=== PATIENT | male | born 1930 | race Caucasian/White ===

== ENCOUNTER 2016-09-04 15:22 | Inpatient (IN) | payer OTHER, BC ==
--- NOTE | 2016-09-04 16:49 | PDOC ---
History of Present Illness <Cammie Robertson - Last Filed: 09/04/16 18:56> <Jacqueline Avila - Last Filed: 09/04/16 20:25> - General History Source: Patient Exam Limitations: No Limitations - History of Present Illness Initial Comments: 09/04/16 19:53 The patient is an 86 year old male with a significant past medical history of a- fib, hypothyroidism, HTN, HLD, pressure ulcer, and osteoarthritis who is arrived to the Emergency Department via EMS with complaints of fever and worsening left pleural effusion. As per notes, pt was told in July that the fluid was getting worse. Pt was recently diagnosed with pneumonia and he is on abx. Pt states that he has not walked for the past months. Pt denies chills, sweats, abdominal pain, nausea, vomiting, diarrhea, urinary problems, chest pain , SOB. PCP: Dr. Lawrence <Benito Navarrete - Last Filed: 09/07/16 11:08> - General Chief Complaint: Revisit,Radiology Variance Stated Complaint: FEVER Time Seen by Provider: 09/04/16 15:37 Past History <Cammie Robertson - Last Filed: 09/04/16 18:56> <Jacqueline Avila - Last Filed: 09/04/16 20:25> - Past Medical History Anemia: Yes COPD: Yes GI Disorders: Yes (peptic ulcer, diverticulosis) HTN: Yes Hypercholesterolemia: Yes - Psycho/Social/Smoking Cessation Hx Anxiety: No Suicidal Ideation: No Smoking History: Never smoked Have you smoked in the past 12 months: No Number of Cigarettes Smoked Daily: 10 If you are a former smoker, when did you quit?: 1970 Information on smoking cessation initiated: No Hx Alcohol Use: No Drug/Substance Use Hx: No Substance Use Type: None <Benito Navarrete - Last Filed: 09/07/16 11:08> - Past Medical History Allergies/Adverse Reactions: Allergies Allergy/AdvReac Type Severity Reaction Status Date / Time No Known Allergies Allergy Verified 06/24/16 09:21 Home Medications: Ambulatory Orders Acetaminophen [Tylenol] 650 mg PO Q6H PRN 05/13/16 Ascorbate Calcium [Vitamin C] 500 mg PO DAILY 05/13/16 Collagenase Clostridium Hist. [Santyl -] 1 applic TP DAILY 05/13/16 Diltiazem HCl [Cardizem LA] 240 mg PO DAILY 05/13/16 Metoprolol Succinate [Toprol Xl] 75 mg PO DAILY 05/13/16 Multivitamin [Poly-Vitamin] 1 each PO DAILY 05/13/16 Digoxin [Lanoxin -] 0.125 mg PO DAILY tablet 05/18/16 Pantoprazole Sodium [Protonix -] 40 mg PO BID tablet.ec 05/18/16 Dabigatran Etexilate Mesylate [Pradaxa -] 150 mg PO BID cap 06/29/16 Ferrous Sulfate [Feosol] 325 mg PO TID 09/05/16 Furosemide 20 mg PO BID 09/05/16 Gentamicin 0.1% Ointment [Garamycin 0.1% Ointment -] 1 applic TP BID 09/05/16 Levothyroxine [Synthroid -] 37.5 mcg PO DAILY@0700 09/05/16 Zinc Sulfate 220 mg PO DAILY 09/05/16 Review of Systems - Review of Systems Able to Perform ROS?: Yes Comments:: 09/04/16 19:53 CONSTITUTIONAL: Yes: fever No reported: Chills, Diaphoresis, Generalized Weakness, Malaise, Loss of Appetite HEENT: No reported: Rhinorrhea, Nasal Congestion, Throat Pain, Throat Swelling, Difficulty Swallowing, Mouth Swelling, Ear Pain, Eye Pain, Visual Changes CARDIOVASCULAR: Yes: left sided pleural effusion No reported: Chest Pain, Syncope, Palpitations , Irregular Heart Rate, Lightheadedness, Peripheral Edema RESPIRATORY: intermittent cough No reported: Shortness of Breath, SOB with Exertion, Orthopnea, Wheezing, Stridor, Hemoptysis GASTROINTESTINAL: No reported: Abdominal pain, Abdominal Distension, Nausea, Vomiting, Diarrhea, Constipation, Melena, Hematochezia GENITOURINARY: No reported: Dysuria, Frequency, Urgency, Hesitancy, Flank Pain, Genital Pain MUSCULOSKELETAL: No reported: Myalgia, Arthralgia, Joint Swelling, Back pain, Neck Pain SKIN: No reported: Rash, Itching, Pallor HEMEATOLOGIC/IMMUNOLOGIC: No reported: Easy Bleeding, Easy Bruising, Lymphadenopathy, Frequent infections ENDOCRINE: No reported: Unexplained Weight Gain, Unexplained Weight Loss, Heat Intolerance , Cold Intolerance NEUROLOGIC: No reported: Headache, Focal Weakness, Paresthesias, Vertigo, Lightheadedness, Unsteady Gait, Seizure, Mental Status Changes, Incontinence PSYCHIATRIC: No reported: Anxiety, Depression <Benito Navarrete - Last Filed: 09/07/16 11:08> *Physical Exam - Vital Signs Last Vital Signs Temp Pulse Resp BP Pulse Ox 97.6 F 63 18 97/63 94 L 09/04/16 15:24 09/04/16 15:24 09/04/16 15:24 09/04/16 15:24 09/04/16 15:24 <Cammie Robertson - Last Filed: 09/04/16 18:56> - Vital Signs Last Vital Signs Temp Pulse Resp BP Pulse Ox 97.6 F 63 18 97/63 94 L 09/04/16 15:24 09/04/16 15:24 09/04/16 15:24 09/04/16 15:24 09/04/16 15:24 <AvilaJacqueline - Last Filed: 09/04/16 20:25> - Vital Signs Last Vital Signs Temp Pulse Resp BP Pulse Ox 97.6 F 63 18 97/63 94 L 09/04/16 15:24 09/04/16 15:24 09/04/16 15:24 09/04/16 15:24 09/04/16 15:24 - Physical Exam Comments: 09/04/16 19:53 GENERAL: The patient is awake, alert, and fully oriented, Nontoxic - in no acute distress. HEAD: Normocephalic, atraumatic. EYES: extraocular movements intact, sclera anicteric, conjunctiva clear. ENT: Normal voice, Moist mucous membranes. NECK: Normal range of motion, supple LUNGS: deminshed breath sounds in L base HEART: Regular rate and rhythm, without murmur, rub or gallop. ABDOMEN: Soft, nontender, normoactive bowel sounds. No guarding, no rebound.No CVA tenderness EXTREMITIES: Normal range of motion, no edema. No clubbing or cyanosis. No cords, erythema, or tenderness. NEUROLOGICAL: No facial assymetry, Normal speech, PSYCH: Normal mood, normal affect. SKIN:+Stage 2 sacral ulcer 2cm*2cm with no discharge. Mildly erythematous, not warm or indurated w/o discharge <LandonBenito - Last Filed: 09/07/16 11:08> Heart Score/ECG Review - ECG Impressions Comment:: 09/04/16 16:51 Twelve-lead EKG was performed and reviewed by me. rate of 59 Rate of [address] wave changes junctional rhthm vs sinus <Benito Navarrete - Last Filed: 09/07/16 11:08> ED Treatment Course - LABORATORY CBC & Chemistry Diagram: 09/04/16 17:17 09/04/16 17:17 - ADDITIONAL ORDERS Additional order review: 09/04/16 17:17 RBC 3.63 L MCV 83.7 MCHC 32.5 RDW 18.3 H MPV 7.3 L Neutrophils % 65.3 Lymphocytes % 18.5 Monocytes % 15.2 H Eosinophils % 0.2 D Basophils % 0.8 <Cammie Robertson - Last Filed: 09/04/16 18:56> - LABORATORY CBC & Chemistry Diagram: 09/04/16 17:17 09/04/16 17:17 - ADDITIONAL ORDERS Additional order review: Laboratory Results 09/04/16 09/04/16 17:17 17:17 Sodium Cancelled Potassium Cancelled Chloride Cancelled Carbon Dioxide Cancelled Anion Gap Cancelled BUN Cancelled Creatinine Cancelled Creat Clearance w eGFR Cancelled Random Glucose Cancelled Calcium Cancelled Total Bilirubin Cancelled AST Cancelled ALT Cancelled Alkaline Phosphatase Cancelled Total Protein Cancelled Albumin Cancelled Digoxin Cancelled 09/04/16 17:17 RBC 3.63 L MCV 83.7 MCHC 32.5 RDW 18.3 H MPV 7.3 L Neutrophils % 65.3 Lymphocytes % 18.5 Monocytes % 15.2 H Eosinophils % 0.2 D Basophils % 0.8 <Jacqueline Avila - Last Filed: 09/04/16 20:25> - LABORATORY CBC & Chemistry Diagram: 09/06/16 07:30 09/06/16 07:30 - RADIOLOGY Radiology Studies Ordered: Category Date Time Status CHEST PA & LAT [RAD] Stat Radiology 09/04/16 16:34 Ordered <Benito Navarrete - Last Filed: 09/07/16 11:08> Medical Decision Making - Medical Decision Making 09/04/16 18:56 Arnav Bhatti was paged through his service. <Cammie Robertson - Last Filed: 09/04/16 18:56> - Medical Decision Making 09/04/16 16:49 86y M hx of afib, hypothoyridism, htn, pressure ulcer, recent dx of pna and pleural effusion, at [facility] pt had fever, and worsening effusion so was referred to the ED for further management, pt currently getting zosyn. here vitals noted for mild hypoxia to 94% exam for the pt is notable for a stage 2 sacral ulcer and mild rhonchi in his bases will ck labs, cxr will continue zosyn and will admit for further management Case discussed in detail with admitting physician including history, physical exam and ancillary studies. Admitting physician has assumed care for the patient, will follow all pending diagnostics and will complete the evaluation and treatment. 09/04/16 19:18 cxr shows enlarging L sided pleural effusion cbc wnl paged dr. alfaro for admission 09/04/16 20:04 awaiting call back from arnav no response after multiple calls. signed out to dr. avila to fu with dr. alfaro for admission <Benito Navarrete - Last Filed: 09/07/16 11:08> *DC/Admit/Observation/Transfer <Cammie Robertson - Last Filed: 09/04/16 18:56> - Discharge Dispostion Admit: Yes <Jacqueline Avila - Last Filed: 09/04/16 20:25> - Discharge Dispostion Admit: Yes <Benito Navarrete - Last Filed: 09/07/16 11:08> Diagnosis at time of Disposition: Pleural effusion - Referrals
[2016-09-04 17:36] LABS: BASOPHIL 0.8 % (0-2.0); EOSINOPHIL 0.2 % (0-4.5); MCH 27.2 pg (25.7-33.7); MCHC 32.5 g/dl (32.0-35.9); MEAN CELL VOLUME 83.7 fl (80-96); MEAN PLT VOLUME 7.3 fl (7.5-11.1); NEUTROPHILS 65.3 % (42.8-82.8); PLATELET COUNT 361 K/MM3 (134-434); RDW 18.3 % (11.9-15.9); WHITE BLOOD COUNT 4.5 K/mm3 (4.0-10.0)
[2016-09-04 21:06] LABS: ALBUMIN 2.3 g/dl (3.4-5.0); BILIRUBIN,TOTAL 0.2 mg/dL (0.2-1.0); CALCIUM 7.9 mg/dL (8.5-10.1); CREATININE 1.6 mg/dL (0.7-1.3); TOT PROT 7.3 g/dl (6.4-8.2)
[2016-09-04 21:18] LABS: DIGOXIN LEVEL 1.845 ng/ml (0.8-2.0)
[2016-09-05 01:56] VITALS: BMI 18.5
[2016-09-05] MEDS: ACETAMINOPHEN 325 MG TABLET (FP) PO PRN (06:33)
[2016-09-05] MEDS: LEVOTHYROXINE NA 75 MCG TABLET (FP) PO SCH (06:33)
[2016-09-05] MEDS: PANTOPRAZOLE 40 MG TABLET (FP) PO SCH ×2 (09:33→21:47)
[2016-09-05] MEDS: METOPROLOL TARTRATE 25 MG TABLET (FP) PO SCH (09:33)
[2016-09-05] MEDS: FUROSEMIDE 20 MG TABLET (FP) PO SCH (09:33)
[2016-09-05] MEDS: GENTAMICIN SO4 0.1% TOPICAL OINTMENT 15 GM/TUBE TUBE TP SCH ×3 (09:33→23:00)
[2016-09-05] MEDS: ASCORBIC ACID 500 MG TABLET (FP) PO SCH (09:33)
[2016-09-05] MEDS: MULTIVITAMINS (DAILY MVI) TABLET (FP) PO SCH (09:33)
[2016-09-05] MEDS: DIGOXIN 0.125 MG TABLET (FP) PO SCH (09:33)
--- NOTE | 2016-09-05 10:32 | EKG ---
Test Reason : Blood Pressure : / mmHG Vent. Rate : 059 BPM Atrial Rate : 059 BPM P-R Int : 000 ms QRS Dur : 070 ms QT Int : 370 ms P-R-T Axes : 000 033 001 degrees QTc Int : 366 ms POOR DATA QUALITY, INTERPRETATION MAY BE ADVERSELY AFFECTED SINUS RHYTHM WITH 1ST DEGREE A-V BLOCK LOW VOLTAGE QRS NONSPECIFIC ST ABNORMALITY ABNORMAL ECG Confirmed by KEEGAN PRATT MD ([id number]) on 09/05/2016 10:32:29 AM Referred By: Confirmed By:KEEGAN PRATT MD
--- NOTE | 2016-09-05 13:46 | CONSULT ---
Consult Consult Specialty:: PULMONARY Referred by:: Dr. José Reason for Consultation:: pleural effusion - History of Present Illness Chief Complaint: pleural effusion History of Present Illness: 86yo male with h/o HTN, hyperlipidemia, atrial fibrillation on anticoagulation, sacral decubitus ulcer who was sent from the halfway for pleural effusion. He denies any chest pain or palpitations. He denies any fevers, chills or sweats. He does have an occasional cough but without wheezing. No leg swelling or orthopnea. No nausea, vomiting or abdominal pain. He reports being treated for pneumonia about a month ago with antibiotics x 7 days. - History Source History Provided By: Patient, Medical Record Limitations to Obtaining History: No Limitations - Past Medical History Cardio/Vascular: Yes: HTN, Hyperlipdemia Pulmonary: Yes: COPD, Pneumonia Gastrointestinal: Yes: Diverticulosis, Peptic Ulcer Disease Renal/: Yes: Renal Failure Musculoskeletal: Yes: Osteoarthritis (knees) - Alcohol/Substance Use Hx Alcohol Use: No History of Substance Use: reports: None - Smoking History Smoking history: Never smoked Have you smoked in the past 12 months: No Aproximately how many cigarettes per day: 10 If you are a former smoker, when did you quit?: 1969 - Social History Usual Living Arrangement: Alone ADL: Independent Occupation: Retired field engineer, single History of Recent Travel: No Home Medications - Allergies Allergies/Adverse Reactions: Allergies Allergy/AdvReac Type Severity Reaction Status Date / Time No Known Allergies Allergy Verified 06/24/16 09:21 - Home Medications Home Medications: Ambulatory Orders Acetaminophen [Tylenol] 650 mg PO Q6H PRN 05/13/16 Ascorbate Calcium [Vitamin C] 500 mg PO DAILY 05/13/16 Collagenase Clostridium Hist. [Santyl -] 1 applic TP DAILY 05/13/16 Diltiazem HCl [Cardizem LA] 240 mg PO DAILY 05/13/16 Metoprolol Succinate [Toprol Xl] 75 mg PO DAILY 05/13/16 Multivitamin [Poly-Vitamin] 1 each PO DAILY 05/13/16 Digoxin [Lanoxin -] 0.125 mg PO DAILY tablet 05/18/16 Pantoprazole Sodium [Protonix -] 40 mg PO BID tablet.ec 05/18/16 Dabigatran Etexilate Mesylate [Pradaxa -] 150 mg PO BID cap 06/29/16 Ferrous Sulfate [Feosol] 325 mg PO TID 09/05/16 Furosemide 20 mg PO BID 09/05/16 Gentamicin 0.1% Ointment [Garamycin 0.1% Ointment -] 1 applic TP BID 09/05/16 Levothyroxine [Synthroid -] 37.5 mcg PO DAILY@0700 09/05/16 Zinc Sulfate 220 mg PO DAILY 09/05/16 Family Disease History - Family Disease History Family Disease History: Other: Father ( 52 of bowel obstruction), Mother ( 79 of CVA), Sister ( 70's sudden in sleep) Review of Systems - Review of Systems Constitutional: denies: Chills, Fever Eyes: denies: Recent Change in Vision HENT: denies: Nasal Congestion, Throat Pain Neck: denies: Stiffness, Tenderness Cardiovascular: denies: Chest Pain, Edema, Palpitations, Shortness of Breath Respiratory: reports: Cough. denies: Hemoptysis, SOB, Wheezing Gastrointestinal: denies: Abdominal Pain, Nausea, Vomiting Genitourinary: denies: Dysuria, Hematuria Physical Exam Vital Sings: Vital Signs Temperature 98.2 F 09/05/16 10:00 Pulse Rate 72 09/05/16 10:00 Respiratory Rate 18 09/05/16 10:00 Blood Pressure 128/58 09/05/16 10:00 O2 Sat by Pulse Oximetry (%) 96 09/05/16 09:00 Constitutional: Yes: Calm Eyes: Yes: Conjunctiva Clear, EOM Intact HENT: Yes: Atraumatic, Normocephalic Neck: Yes: Supple, Trachea Midline Cardiovascular: Yes: Pulse Irregular Respiratory: Yes: Rales (basilar) ...Clubbing: No Gastrointestinal: Yes: Normal Bowel Sounds, Soft. No: Tenderness Edema: No Neurological: Yes: Alert, Oriented Labs: CBC, BMP 09/04/16 20:15 Imaging - Results Chest X-ray: Report Reviewed, Image Reviewed (bilateral pleural effusions L>R) Problem List - Problems (1) Pleural effusion Code(s): J90 - PLEURAL EFFUSION, NOT ELSEWHERE CLASSIFIED (2) Atrial fibrillation Code(s): I48.91 - UNSPECIFIED ATRIAL FIBRILLATION (3) Left ventricular diastolic dysfunction Code(s): I51.9 - HEART DISEASE, UNSPECIFIED (4) HTN (hypertension) Code(s): I10 - ESSENTIAL (PRIMARY) HYPERTENSION Assessment/Plan Bilateral Pleural Effusions LV Diastolic Dysfunction Mitral Regurgitation Pulmonary HTN Atrial Fibrillation HTN - would check BMP, echocardiogram as prior echo showing mildly reduced LVEF, LVH, mod MR - pt lying supine, asymptomatic, will hold off on diuresis until above studies - pt without fevers or leukocytosis, monitor off antibiotics - rate controlled - if pleural effusion not attributed to heart failure, can perform diagnostic thoracentesis but will need to hold anticoagulation - O2 as needed Thank you for this consult Umair Obregon MD
[2016-09-05 20:52] LABS: URINE APPEARANCE CLEAR; URINE BILIRUBIN NEGATIVE (NEGATIVE); URINE BLOOD NEGATIVE (NEGATIVE); URINE COLOR YELLOW; URINE GLUCOSE (UA) NEGATIVE (NEGATIVE); URINE KETONE NEGATIVE (NEGATIVE); URINE NITRITE NEGATIVE (NEGATIVE); URINE PROTEIN NEGATIVE (NEGATIVE); URINE UROBILINOGEN NEGATIVE E.U./dl (0.2-1.0)
[2016-09-05 20:55] LABS: URINE LEUK ESTERASE TRACE (NEGATIVE)
[2016-09-05 21:01] LABS: URINE BACTERIA RARE /hpf (NONE SEEN); URINE HYALINE CAST 3 /lpf; URINE MUCUS RARE; URINE RBC 1 /hpf (0-3); URINE WBC 3 /hpf (3-5)
[2016-09-05] MEDS ORDERED: PT OWN MED DRAWER 7, Y5N ONE (21:36)
[2016-09-06] MEDS: LEVOTHYROXINE NA 75 MCG TABLET (FP) PO SCH (06:06)
[2016-09-06 08:29] LABS: BASOPHIL 0.8 % (0-2.0); EOSINOPHIL 0.3 % (0-4.5); MCH 27.2 pg (25.7-33.7); MCHC 32.7 g/dl (32.0-35.9); MEAN CELL VOLUME 83.3 fl (80-96); MEAN PLT VOLUME 7.4 fl (7.5-11.1); NEUTROPHILS 71.7 % (42.8-82.8); PLATELET COUNT 277 K/MM3 (134-434); RDW 18.2 % (11.9-15.9); WHITE BLOOD COUNT 5.6 K/mm3 (4.0-10.0)
[2016-09-06 08:56] LABS: ALBUMIN 2.1 g/dl (3.4-5.0); CALCIUM 7.8 mg/dL (8.5-10.1); MAGNESIUM 2.3 mg/dL (1.8-2.4)
[2016-09-06 09:02] LABS: BILIRUBIN,TOTAL 0.3 mg/dL (0.2-1.0); CREATININE 1.4 mg/dL (0.7-1.3); PHOSPHOROUS 2.8 mg/dL (2.5-4.9); TOT PROT 6.5 g/dl (6.4-8.2)
[2016-09-06] MEDS: METOPROLOL TARTRATE 25 MG TABLET (FP) PO SCH (09:56)
[2016-09-06] MEDS: MULTIVITAMINS (DAILY MVI) TABLET (FP) PO SCH (09:56)
[2016-09-06] MEDS: DIGOXIN 0.125 MG TABLET (FP) PO SCH (09:56)
[2016-09-06] MEDS: GENTAMICIN SO4 0.1% TOPICAL OINTMENT 15 GM/TUBE TUBE TP SCH ×2 (09:56→22:13)
[2016-09-06] MEDS: ASCORBIC ACID 500 MG TABLET (FP) PO SCH (09:56)
[2016-09-06] MEDS: PANTOPRAZOLE 40 MG TABLET (FP) PO SCH ×2 (09:56→22:13)
[2016-09-06] MEDS: FUROSEMIDE 20 MG TABLET (FP) PO SCH (09:56)
--- NOTE | 2016-09-06 10:11 | HP ---
DATE OF ADMISSION: 09/04/2016 He is an 86-year-old male who was brought into the emergency room with progressively worsening pleural effusion. Patient was treated about a month ago for pneumonia and subsequently had a small pleural effusion. This, on following, had been progressively getting worse. He has mild shortness of breath but denies any continued fever or chills. He denies any chest pain. There is no loss of weight, loss of appetite. There is no leg swelling. PAST MEDICAL HISTORY: Anemia, atrial fibrillation, congestive heart failure. PRESENT MEDICATIONS: Include vitamin C, digoxin 0.125 mg p.o. daily, Cardizem 240 mg p.o. daily, Lasix 20 mg p.o. daily, Synthroid 37.5 mcg p.o. daily, Lopressor 75 mg p.o. daily, multivitamin, Protonix 40 mg twice a day, and Pradaxa 150 mg twice a day. ALLERGIES: None. SOCIAL HISTORY: He is single. He has no children. 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 Nonsmoker; he quit smoking in 1969. Prior to that, patient smoked about 1/2 pack of cigarettes daily. Denies any alcohol or drug abuse. FAMILY HISTORY: Significant for 3 siblings. Most of them had of old age. REVIEW OF SYSTEMS: Unremarkable apart from age-associated decline of his musculoskeletal function. He denies any chronic headache, dizziness, chest pains, palpitations, abdominal pain, loss of weight, loss of appetite. PHYSICAL EXAMINATION: Vital Signs: He has a blood pressure of 120/70, pulse rate of 62, respiratory rate of 20, and temperature 98.7. HEENT: He is not pale, not icteric. JVD is absent. Thyroid and carotids appear normal. Heart: Regular rhythm. No murmurs. Lungs: Vesicular breathing. There are a few scattered rales present mainly in the left side. The air entry in the left is slightly reduced. Abdomen: Benign. Extremities: No edema. Blood work shows digoxin level of 1.85. He has a hemoglobin of 9.9 and hematocrit 30, WBC of 4.5. Basic metabolic profile is within normal limits. BUN 44, creatinine 1.6. Liver function tests are normal with the exception of albumin being 2.3. Chest x-ray shows a worsening left lower lobe consolidation with a left pleural effusion that is now moderate in size compared to the prior small one. ASSESSMENT AND PLAN: 1. Pleural effusion with history of recent pneumonia. A parapneumonic effusion is likely. Other possibilities are empyema which I doubt given patient's clinical symptoms of feeling well; no fever, chills, etc. Congestive heart failure is a likely possibility, but his ejection fraction recently was near normal. Given the worsening of the pleural effusion and gradual accumulation of it, a pleural tap would be both diagnostic and curative value. Would hold the Pradaxa for 24 hours and proceed with a pleural tap on Wednesday. 2. Atrial fibrillation. 3. Congestive heart failure. 4. Hypertension. Continue present medication with the exception of Pradaxa. CHRISTIAN SOARES M.D. [id number]
--- NOTE | 2016-09-06 13:40 | PN ---
Progress Note (short form) - Note Progress Note: No complaints No fever SOB is the same O/E Heart irregular Lungs air entry is unchanged few left sided rales+ Ext no e Vital Signs Period Temp Pulse Resp BP Sys/Hill Pulse Ox Last 24 Hr 97.7 F-98.7 F 52-66 18-20 103-120/41-70 96-98 Laboratory Results - last 24 hr 09/05/16 09/06/16 09/06/16 15:00 07:30 07:30 WBC 5.6 RBC 3.32 L Hgb 9.1 L Hct 27.7 L MCV 83.3 MCHC 32.7 RDW 18.2 H Plt Count 277 D MPV 7.4 L Neutrophils % 71.7 Lymphocytes % 16.1 Monocytes % 11.1 H Eosinophils % 0.3 Basophils % 0.8 Sodium 137 Potassium 3.7 Chloride 105 Carbon Dioxide 27 Anion Gap 5 L BUN 44 H Creatinine 1.4 H Creat Clearance w eGFR 47.94 Random Glucose 87 Calcium 7.8 L Phosphorus 2.8 D Magnesium 2.3 Total Bilirubin 0.3 D AST 28 ALT 14 Alkaline Phosphatase 68 B-Natriuretic Peptide 1530.90 H Total Protein 6.5 Albumin 2.1 L Urine Color Yellow Urine Appearance Clear Urine pH 5.0 Ur Specific [place] 1.015 Urine Protein Negative Urine Glucose (UA) Negative Urine Ketones Negative Urine Blood Negative Urine Nitrite Negative Urine Bilirubin Negative Urine Urobilinogen Negative Ur Leukocyte Esterase Trace H Urine RBC 1 Urine WBC 3 Ur Epithelial Cells Rare Urine Bacteria Rare Hyaline Casts 3 Urine Mucus Rare Current Medications Acetaminophen (Tylenol -) 650 mg PO Q6H PRN PRN Reason: FEVER OR PAIN Last Admin: 09/05/16 06:33 Dose: 650 mg Ascorbic Acid (Vitamin C -) 500 mg PO DAILY [facility] Last Admin: 09/06/16 09:56 Dose: 500 mg Digoxin (Lanoxin -) 0.125 mg PO DAILY [facility] Last Admin: 09/06/16 09:56 Dose: 0.125 mg Diltiazem HCl (Cardizem Cd -) 240 mg PO DAILY [facility] Last Admin: 09/06/16 09:57 Dose: 240 mg Furosemide (Lasix -) 20 mg PO DAILY [facility] Last Admin: 09/06/16 09:56 Dose: 20 mg Gentamicin Sulfate (Garamycin 0.1% Ointment -) 1 applic TP BID [facility] Last Admin: 09/06/16 09:56 Dose: 1 applic Levothyroxine Sodium (Synthroid -) 37.5 mcg PO DAILY@0700 [facility] Last Admin: 09/06/16 06:06 Dose: 37.5 mcg Metoprolol Tartrate (Lopressor -) 75 mg PO DAILY [facility] Last Admin: 09/06/16 09:56 Dose: 75 mg Multivitamins/Minerals/Vitamin C (Tab-A-Vit -) 1 tab PO DAILY [facility] Last Admin: 09/06/16 09:56 Dose: 1 tab Pantoprazole Sodium (Protonix -) 40 mg PO BID [facility] Last Admin: 09/06/16 09:56 Dose: 40 mg haritha (1) Pleural effusion Code(s): J90 - Is awaiting tap on Wednesday Pradaxa is being held (2) Atrial fibrillation Code(s): I48.91 - Heart reate is OK, Pradaxa on hold (3) Left ventricular diastolic dysfunction Code(s): I51.9 - Stable cont present (4) HTN (hypertension) Code(s): I10 - Controlled
--- NOTE | 2016-09-06 14:08 | PN ---
Progress Note, Physician History of Present Illness: PULMONARY ALERT,FEELING BETTER,NAD - Current Medication List Current Medications: Active Medications Acetaminophen (Tylenol -) 650 mg PO Q6H PRN PRN Reason: FEVER OR PAIN Last Admin: 09/05/16 06:33 Dose: 650 mg Ascorbic Acid (Vitamin C -) 500 mg PO DAILY [facility] Last Admin: 09/06/16 09:56 Dose: 500 mg Digoxin (Lanoxin -) 0.125 mg PO DAILY [facility] Last Admin: 09/06/16 09:56 Dose: 0.125 mg Diltiazem HCl (Cardizem Cd -) 240 mg PO DAILY [facility] Last Admin: 09/06/16 09:57 Dose: 240 mg Furosemide (Lasix -) 20 mg PO DAILY [facility] Last Admin: 09/06/16 09:56 Dose: 20 mg Gentamicin Sulfate (Garamycin 0.1% Ointment -) 1 applic TP BID [facility] Last Admin: 09/06/16 09:56 Dose: 1 applic Levothyroxine Sodium (Synthroid -) 37.5 mcg PO DAILY@0700 [facility] Last Admin: 09/06/16 06:06 Dose: 37.5 mcg Metoprolol Tartrate (Lopressor -) 75 mg PO DAILY [facility] Last Admin: 09/06/16 09:56 Dose: 75 mg Multivitamins/Minerals/Vitamin C (Tab-A-Vit -) 1 tab PO DAILY [facility] Last Admin: 09/06/16 09:56 Dose: 1 tab Pantoprazole Sodium (Protonix -) 40 mg PO BID [facility] Last Admin: 09/06/16 09:56 Dose: 40 mg - Objective Vital Signs: Vital Signs Temperature 98.2 F 09/06/16 10:00 Pulse Rate 66 09/06/16 10:00 Respiratory Rate 20 09/06/16 10:00 Blood Pressure 103/50 09/06/16 10:00 O2 Sat by Pulse Oximetry (%) 98 09/06/16 09:00 Constitutional: Yes: Well Nourished, Calm Eyes: Yes: WNL HENT: Yes: WNL Neck: Yes: WNL Cardiovascular: Yes: Pulse Irregular, S1, S2 Respiratory: Yes: Diminished, Rales (BIBASILAR CRACKLES) Gastrointestinal: Yes: WNL Extremities: Yes: WNL Edema: No Labs: CBC, BMP 09/06/16 07:30 09/06/16 07:30 Laboratory Tests 09/06/16 07:30 BUN 44 H Creatinine 1.4 H B-Natriuretic Peptide 1530.90 H Assessment/Plan Problem List - Problems (1) Pleural effusion Code(s): J90 - PLEURAL EFFUSION, NOT ELSEWHERE CLASSIFIED (2) Atrial fibrillation Code(s): I48.91 - UNSPECIFIED ATRIAL FIBRILLATION (3) Left ventricular diastolic dysfunction Code(s): I51.9 - HEART DISEASE, UNSPECIFIED (4) HTN (hypertension) Code(s): I10 - ESSENTIAL (PRIMARY) HYPERTENSION Assessment/Plan Bilateral Pleural Effusions LV Diastolic Dysfunction Mitral Regurgitation Pulmonary HTN Atrial Fibrillation HTN CKD - echo - rate controlled - O2 as needed DR FORTE
[2016-09-07] MEDS: LEVOTHYROXINE NA 75 MCG TABLET (FP) PO SCH (06:28)
[2016-09-07] MEDS: MULTIVITAMINS (DAILY MVI) TABLET (FP) PO SCH (09:23)
[2016-09-07] MEDS: METOPROLOL TARTRATE 25 MG TABLET (FP) PO SCH (09:23)
[2016-09-07] MEDS: ASCORBIC ACID 500 MG TABLET (FP) PO SCH (09:23)
[2016-09-07] MEDS: FUROSEMIDE 20 MG TABLET (FP) PO SCH (09:24)
[2016-09-07] MEDS: PANTOPRAZOLE 40 MG TABLET (FP) PO SCH ×2 (09:24→21:28)
[2016-09-07] MEDS: DIGOXIN 0.125 MG TABLET (FP) PO SCH (09:24)
[2016-09-07] MEDS: GENTAMICIN SO4 0.1% TOPICAL OINTMENT 15 GM/TUBE TUBE TP SCH ×2 (14:08→21:31)
--- NOTE | 2016-09-07 15:18 | PN ---
Progress Note, Physician History of Present Illness: PULMONARY ALERT,NAD,-SOB,-COUGH,-CP - Current Medication List Current Medications: Active Medications Acetaminophen (Tylenol -) 650 mg PO Q6H PRN PRN Reason: FEVER OR PAIN Last Admin: 09/05/16 06:33 Dose: 650 mg Ascorbic Acid (Vitamin C -) 500 mg PO DAILY [facility] Last Admin: 09/07/16 09:23 Dose: 500 mg Digoxin (Lanoxin -) 0.125 mg PO DAILY [facility] Last Admin: 09/07/16 09:24 Dose: 0.125 mg Diltiazem HCl (Cardizem Cd -) 240 mg PO DAILY [facility] Last Admin: 09/07/16 09:24 Dose: 240 mg Furosemide (Lasix -) 20 mg PO DAILY [facility] Last Admin: 09/07/16 09:24 Dose: 20 mg Gentamicin Sulfate (Garamycin 0.1% Ointment -) 1 applic TP BID [facility] Last Admin: 09/07/16 14:08 Dose: 1 applic Levothyroxine Sodium (Synthroid -) 37.5 mcg PO DAILY@0700 [facility] Last Admin: 09/07/16 06:28 Dose: 37.5 mcg Metoprolol Tartrate (Lopressor -) 75 mg PO DAILY [facility] Last Admin: 09/07/16 09:23 Dose: 75 mg Multivitamins/Minerals/Vitamin C (Tab-A-Vit -) 1 tab PO DAILY [facility] Last Admin: 09/07/16 09:23 Dose: 1 tab Pantoprazole Sodium (Protonix -) 40 mg PO BID [facility] Last Admin: 09/07/16 09:24 Dose: 40 mg - Objective Vital Signs: Vital Signs Temperature 98.2 F 09/07/16 13:51 Pulse Rate 58 L 09/07/16 13:51 Respiratory Rate 20 09/07/16 08:16 Blood Pressure 110/48 09/07/16 13:51 O2 Sat by Pulse Oximetry (%) 98 09/07/16 09:00 Constitutional: Yes: Well Nourished, Calm Eyes: Yes: WNL HENT: Yes: WNL Neck: Yes: WNL Cardiovascular: Yes: Pulse Irregular, S1, S2 Respiratory: Yes: Rales (BIBASILAR RALES) Gastrointestinal: Yes: Normal Bowel Sounds, Soft Extremities: Yes: WNL Edema: No Labs: Assessment/Plan Problem List - Problems (1) Pleural effusion Code(s): J90 - PLEURAL EFFUSION, NOT ELSEWHERE CLASSIFIED (2) Atrial fibrillation Code(s): I48.91 - UNSPECIFIED ATRIAL FIBRILLATION (3) Left ventricular diastolic dysfunction Code(s): I51.9 - HEART DISEASE, UNSPECIFIED (4) HTN (hypertension) Code(s): I10 - ESSENTIAL (PRIMARY) HYPERTENSION Assessment/Plan Bilateral Pleural Effusions LV Diastolic Dysfunction Mitral Regurgitation Pulmonary HTN Atrial Fibrillation HTN CKD - rate controlled - O2 as needed - chest x-ray today - lino FORTE
--- NOTE | 2016-09-07 16:44 | PN ---
Progress Note, Physician History of Present Illness: Pt w/o F, C, SOB, CP, palp., abd pain. - Current Medication List Current Medications: Active Medications Acetaminophen (Tylenol -) 650 mg PO Q6H PRN PRN Reason: FEVER OR PAIN Last Admin: 09/05/16 06:33 Dose: 650 mg Ascorbic Acid (Vitamin C -) 500 mg PO DAILY [facility] Last Admin: 09/07/16 09:23 Dose: 500 mg Digoxin (Lanoxin -) 0.125 mg PO DAILY [facility] Last Admin: 09/07/16 09:24 Dose: 0.125 mg Diltiazem HCl (Cardizem Cd -) 240 mg PO DAILY [facility] Last Admin: 09/07/16 09:24 Dose: 240 mg Furosemide (Lasix -) 20 mg PO DAILY [facility] Last Admin: 09/07/16 09:24 Dose: 20 mg Gentamicin Sulfate (Garamycin 0.1% Ointment -) 1 applic TP BID [facility] Last Admin: 09/07/16 14:08 Dose: 1 applic Levothyroxine Sodium (Synthroid -) 37.5 mcg PO DAILY@0700 [facility] Last Admin: 09/07/16 06:28 Dose: 37.5 mcg Metoprolol Tartrate (Lopressor -) 75 mg PO DAILY [facility] Last Admin: 09/07/16 09:23 Dose: 75 mg Multivitamins/Minerals/Vitamin C (Tab-A-Vit -) 1 tab PO DAILY [facility] Last Admin: 09/07/16 09:23 Dose: 1 tab Pantoprazole Sodium (Protonix -) 40 mg PO BID [facility] Last Admin: 09/07/16 09:24 Dose: 40 mg - Objective Vital Signs: Vital Signs Temperature 98.2 F 09/07/16 13:51 Pulse Rate 58 L 09/07/16 13:51 Respiratory Rate 20 09/07/16 08:16 Blood Pressure 110/48 09/07/16 13:51 O2 Sat by Pulse Oximetry (%) 98 09/07/16 09:00 Constitutional: Yes: No Distress, Calm Cardiovascular: Yes: Regular Rate and Rhythm, S1, S2 Respiratory: Yes: Regular, Rales (at bases), Other (decreased BS at Left base > > right) Gastrointestinal: Yes: Normal Bowel Sounds, Soft. No: Tenderness Edema: No Neurological: Yes: Alert, Oriented Labs: CBC, BMP 09/06/16 07:30 09/06/16 07:30 - ....Imaging Chest X-ray: Report Reviewed Problem List - Problems (1) Pleural effusion Assessment/Plan: To f/u wiht Pulmonary. Pt might need Chest CT scan. Possible to be parapneumonic vs CHF vs malignancy. Code(s): J90 - PLEURAL EFFUSION, NOT ELSEWHERE CLASSIFIED (2) CHF (congestive heart failure) Assessment/Plan: cont meds Code(s): I50.9 - HEART FAILURE, UNSPECIFIED (3) Atrial fibrillation Assessment/Plan: not on AC Code(s): I48.91 - UNSPECIFIED ATRIAL FIBRILLATION (4) COPD (chronic obstructive pulmonary disease) Code(s): J44.9 - CHRONIC OBSTRUCTIVE PULMONARY DISEASE, UNSPECIFIED (5) Pulmonary hypertension Code(s): I27.2 - OTHER SECONDARY PULMONARY HYPERTENSION Assessment/Plan AM labs. Pt. was transfered today to my service.
[2016-09-07] MEDS: ACETAMINOPHEN 325 MG TABLET (FP) PO PRN (21:28)
[2016-09-08] MEDS: LEVOTHYROXINE NA 75 MCG TABLET (FP) PO SCH (06:15)
[2016-09-08 08:18] LABS: MCH 27.3 pg (25.7-33.7); MCHC 32.8 g/dl (32.0-35.9); MEAN CELL VOLUME 83.2 fl (80-96); PLATELET COUNT 266 K/MM3 (134-434); RDW 18.2 % (11.9-15.9); WHITE BLOOD COUNT 6.9 K/mm3 (4.0-10.0)
[2016-09-08 08:19] LABS: MEAN PLT VOLUME 7.7 fl (7.5-11.1)
[2016-09-08 08:59] LABS: ALK PHOS 66 U/L (45-117); ANION GAP 8 (8-16); BILIRUBIN,TOTAL 0.2 mg/dL (0.2-1.0); CALCIUM 7.8 mg/dL (8.5-10.1); CO2 27 mmol/L (21-32); CREATININE 1.1 mg/dL (0.7-1.3); GLUCOSE,RANDOM 85 mg/dL (74-106); SGOT/AST 29 U/L (15-37); SGPT/ALT 18 U/L (12-78); TOT PROT 6.5 g/dl (6.4-8.2)
[2016-09-08] MEDS: DIGOXIN 0.125 MG TABLET (FP) PO SCH (09:30)
[2016-09-08] MEDS: FUROSEMIDE 20 MG TABLET (FP) PO SCH (09:30)
[2016-09-08] MEDS: PANTOPRAZOLE 40 MG TABLET (FP) PO SCH (09:31)
[2016-09-08] MEDS: METOPROLOL TARTRATE 25 MG TABLET (FP) PO SCH (09:31)
[2016-09-08] MEDS: MULTIVITAMINS (DAILY MVI) TABLET (FP) PO SCH (09:31)
[2016-09-08] MEDS: ASCORBIC ACID 500 MG TABLET (FP) PO SCH (09:31)
--- NOTE | 2016-09-08 10:27 | PN ---
Progress Note, Physician History of Present Illness: Pt w/o F, C, SOB, CP, palp., abd pain. Pt with cough- occasonally, old. - Current Medication List Current Medications: Active Medications Acetaminophen (Tylenol -) 650 mg PO Q6H PRN PRN Reason: FEVER OR PAIN Last Admin: 09/07/16 21:28 Dose: 650 mg Ascorbic Acid (Vitamin C -) 500 mg PO DAILY [facility] Last Admin: 09/08/16 09:31 Dose: 500 mg Digoxin (Lanoxin -) 0.125 mg PO DAILY [facility] Last Admin: 09/08/16 09:30 Dose: 0.125 mg Diltiazem HCl (Cardizem Cd -) 240 mg PO DAILY [facility] Last Admin: 09/08/16 09:30 Dose: 240 mg Furosemide (Lasix -) 20 mg PO DAILY [facility] Last Admin: 09/08/16 09:30 Dose: 20 mg Gentamicin Sulfate (Garamycin 0.1% Ointment -) 1 applic TP BID [facility] Last Admin: 09/07/16 21:31 Dose: 1 applic Levothyroxine Sodium (Synthroid -) 37.5 mcg PO DAILY@0700 [facility] Last Admin: 09/08/16 06:15 Dose: 37.5 mcg Metoprolol Tartrate (Lopressor -) 75 mg PO DAILY [facility] Last Admin: 09/08/16 09:31 Dose: 75 mg Multivitamins/Minerals/Vitamin C (Tab-A-Vit -) 1 tab PO DAILY [facility] Last Admin: 09/08/16 09:31 Dose: 1 tab Pantoprazole Sodium (Protonix -) 40 mg PO BID [facility] Last Admin: 09/08/16 09:31 Dose: 40 mg - Objective Vital Signs: Vital Signs Temperature 97.9 F 09/08/16 06:00 Pulse Rate 71 09/08/16 09:30 Respiratory Rate 20 09/08/16 06:00 Blood Pressure 98/46 09/08/16 06:00 O2 Sat by Pulse Oximetry (%) 97 09/07/16 21:00 Constitutional: Yes: No Distress, Calm Cardiovascular: Yes: Regular Rate and Rhythm, S1, S2 Respiratory: Yes: Regular, Cough, Rhonchi, Other (decreased BS at bases) Gastrointestinal: Yes: Normal Bowel Sounds, Soft. No: Palpable Mass, Tenderness Edema: No Neurological: Yes: Alert, Oriented Labs: CBC, BMP 09/08/16 06:30 09/08/16 06:30 Problem List - Problems (1) Pleural effusion Assessment/Plan: To f/u with Pulmonary if needs additional studies. Code(s): J90 - PLEURAL EFFUSION, NOT ELSEWHERE CLASSIFIED (2) CHF (congestive heart failure) Assessment/Plan: cont meds. Code(s): I50.9 - HEART FAILURE, UNSPECIFIED (3) Atrial fibrillation Assessment/Plan: not on AC Code(s): I48.91 - UNSPECIFIED ATRIAL FIBRILLATION (4) COPD (chronic obstructive pulmonary disease) Code(s): J44.9 - CHRONIC OBSTRUCTIVE PULMONARY DISEASE, UNSPECIFIED (5) Pulmonary hypertension Code(s): I27.2 - OTHER SECONDARY PULMONARY HYPERTENSION (6) Anemia Assessment/Plan: Chronic. H/H trending down. Check stool for occult blood Code(s): D64.9 - ANEMIA, UNSPECIFIED Qualifiers: Anemia type: unspecified type Qualified Code(s): D64.9 - Anemia, unspecified Assessment/Plan AM labs.
[2016-09-08] MEDS: GENTAMICIN SO4 0.1% TOPICAL OINTMENT 15 GM/TUBE TUBE TP SCH (11:42)
--- NOTE | 2016-09-08 12:02 | PN ---
Progress Note (short form) - Note Progress Note: PULMONARY Denies shortness of breath or chest pain. No fevers or chills. +occasional nonproductive cough. Last Vital Signs Temp Pulse Resp BP Pulse Ox 97.6 F 71 20 114/46 93 L 09/08/16 10:00 09/08/16 10:00 09/08/16 10:00 09/08/16 10:00 09/08/16 09:00 Gen: NAD lying supine Heart: RRR Lung: left base rales Abd: soft, nontender Ext: no edema CBC, BMP 09/08/16 06:30 09/08/16 06:30 Active Medications Acetaminophen (Tylenol -) 650 mg PO Q6H PRN PRN Reason: FEVER OR PAIN Last Admin: 09/07/16 21:28 Dose: 650 mg Ascorbic Acid (Vitamin C -) 500 mg PO DAILY [facility] Last Admin: 09/08/16 09:31 Dose: 500 mg Digoxin (Lanoxin -) 0.125 mg PO DAILY [facility] Last Admin: 09/08/16 09:30 Dose: 0.125 mg Diltiazem HCl (Cardizem Cd -) 240 mg PO DAILY [facility] Last Admin: 09/08/16 09:30 Dose: 240 mg Furosemide (Lasix -) 20 mg PO DAILY [facility] Last Admin: 09/08/16 09:30 Dose: 20 mg Gentamicin Sulfate (Garamycin 0.1% Ointment -) 1 applic TP BID [facility] Last Admin: 09/08/16 11:42 Dose: 1 applic Levothyroxine Sodium (Synthroid -) 37.5 mcg PO DAILY@0700 [facility] Last Admin: 09/08/16 06:15 Dose: 37.5 mcg Metoprolol Tartrate (Lopressor -) 75 mg PO DAILY [facility] Last Admin: 09/08/16 09:31 Dose: 75 mg Multivitamins/Minerals/Vitamin C (Tab-A-Vit -) 1 tab PO DAILY [facility] Last Admin: 09/08/16 09:31 Dose: 1 tab Pantoprazole Sodium (Protonix -) 40 mg PO BID [facility] Last Admin: 09/08/16 09:31 Dose: 40 mg A/P Left Pleural Effusion Recent Pneumonia LV Diastolic Dysfunction Mitral Regurgitation Pulmonary HTN Atrial Fibrillation HTN - pt without fevers or leukocytosis, monitor off antibiotics - rate controlled - continue anticoagulation - pt with recent pneumonia now with left pleural effusion but pt asymptomatic without shortness of breath, back/chest pain, fevers or chills - can defer thoracentesis, would repeat CXR in 1 month to reassess effusion or earlier if pt symptomatic - O2 as needed Problem List - Problems (1) Pleural effusion Code(s): J90 - PLEURAL EFFUSION, NOT ELSEWHERE CLASSIFIED (2) Atrial fibrillation Code(s): I48.91 - UNSPECIFIED ATRIAL FIBRILLATION (3) Left ventricular diastolic dysfunction Code(s): I51.9 - HEART DISEASE, UNSPECIFIED (4) HTN (hypertension) Code(s): I10 - ESSENTIAL (PRIMARY) HYPERTENSION
[2016-09-08 14:02] VITALS: BP 100/46; PULSE 58; TEMP 98.3
--- NOTE | 2016-09-08 14:52 | DS ---
Physical Examination Vital Signs: Vital Signs Temperature 98.3 F 09/08/16 14:01 Pulse Rate 58 L 09/08/16 14:01 Respiratory Rate 20 09/08/16 14:01 Blood Pressure 100/46 09/08/16 14:01 O2 Sat by Pulse Oximetry (%) 93 L 09/08/16 09:00 Findings/Remarks: see Progress Note for ROS, PE, Problem list. I reviewed the case w Dr. Obregon; CXR's were reviewed and compared; Pl effusion is considered Parapneumonic. Patient needs follow up CXR in 4 weeks. Pt. needs CBC checked this week- for anemia Time spent for managing pt's care: over 50 min. Labs: CBC, BMP 09/08/16 06:30 09/08/16 06:30 Discharge Summary Reason For Visit: PLEURAL EFFUSION Current Active Problems Left ventricular diastolic dysfunction (Acute) Pleural effusion (Acute) Pulmonary hypertension (Acute) Procedures: Principal: CXR( X 2) Hospital Course: Pt is a [place] resident, with recent PNA, was sent to ER for SOB; it was noticed to have left pleural effusion. Pt was admitted to Dr. Lawrence/ [facility] service; Prada was held for posssible thoracentesis. Pt was seen by Pulmonary ( Dr. Corona/ [facility]). Pt was transferred to my service yesterday. Pt symptoms improved with conservative mannagement. Pt to be NC'ed back to [place]. Pt needs follow up CXR in 4 weeks. Pt. needs CBC checked this week. Condition: Fair - Instructions Diet, Activity, Other Instructions: Low salt, low cholesterol. Pt. needs CBC checked this week- for anemia . Pt needs follow up CXR in 4 weeks- for pleural effusion. Referrals: Deven Yuen MD [Primary Care Provider] - Disposition: RESIDENTIAL FACILITY - Home Medications Comprehensive Discharge Medication List: Ambulatory Orders Acetaminophen [Tylenol] 650 mg PO Q6H PRN 05/13/16 Ascorbate Calcium [Vitamin C] 500 mg PO DAILY 05/13/16 Collagenase Clostridium Hist. [Santyl -] 1 applic TP DAILY 05/13/16 Diltiazem HCl [Cardizem LA] 240 mg PO DAILY 05/13/16 Metoprolol Succinate [Toprol Xl] 75 mg PO DAILY 05/13/16 Multivitamin [Poly-Vitamin] 1 each PO DAILY 05/13/16 Digoxin [Lanoxin -] 0.125 mg PO DAILY tablet 05/18/16 Pantoprazole Sodium [Protonix -] 40 mg PO BID tablet.ec 05/18/16 Dabigatran Etexilate Mesylate [Pradaxa -] 150 mg PO BID cap 06/29/16 Ferrous Sulfate [Feosol] 325 mg PO TID 09/05/16 Furosemide 20 mg PO BID 09/05/16 Gentamicin 0.1% Ointment [Garamycin 0.1% Ointment -] 1 applic TP BID 09/05/16 Levothyroxine [Synthroid -] 37.5 mcg PO DAILY@0700 09/05/16 Zinc Sulfate 220 mg PO DAILY 09/05/16
== END 2016-09-08 18:00 | DRG 188 ==
LOC: JER 15:22 → JERBED 19:45 → J6S 09-05 01:10
PROVIDERS: ADMIT Specialist; ATTEND Specialist
DX: J90 Pleural effusion, not elsewhere classified (principal); I27.2 Other secondary pulmonary hypertension; D64.9 Anemia, unspecified; I48.91 Unspecified atrial fibrillation; I10 Essential (primary) hypertension; I34.0 Nonrheumatic mitral (valve) insufficiency; J44.9 Chronic obstructive pulmonary disease, unspecified; I50.9 Heart failure, unspecified; E03.9 Hypothyroidism, unspecified; M17.0 Bilateral primary osteoarthritis of knee; E78.5 Hyperlipidemia, unspecified; L89.152 Pressure ulcer of sacral region, stage 2
CPT/HCPCS: 36415; 71010-TC; 71020-TC; 80053; 80162; 81003; 81015; 82272; 83735; 83880; 84100; 85025; 85027; 87040; 93005; 93010; 93306-TC; 97116-GP; 97163-GP; 99285-25

== ENCOUNTER 2017-08-10 21:14 | Inpatient (IN) | payer OTHER, BC ==
--- NOTE | 2017-08-10 22:24 | PDOC ---
History of Present Illness - General History Source: Patient <Emre Currie - Last Filed: 08/11/17 03:13> - History of Present Illness Initial Comments: 08/10/17 22:27 The patient is an 87 year old male with a significant past medical history of a- fib, hypothyroidism, HTN, HLD, pressure ulcer, and osteoarthritis who is arrived to the Emergency Department via EMS from [facility] s/p slip and fall this evening. The patient denies head trauma. He denies any complaints of pain at this time. He denies chest pain, shortness of breath, headache and dizziness. He denies fever, chills, nausea, vomit, diarrhea and constipation. He denies dysuria, frequency, urgency and hematuria. PCP: Dr. Lawrence <Camelia Peter - Last Filed: 08/11/17 03:18> - General Chief Complaint: Injury Stated Complaint: FALL Time Seen by Provider: 08/10/17 22:20 Past History - Past Medical History Anemia: Yes Cardiac Disorders: Yes (A-fib) COPD: No GI Disorders: Yes (peptic ulcer, diverticulosis, GERD) HTN: Yes Hypercholesterolemia: Yes Thyroid Disease: Yes (Hypothyroid) - Suicide/Smoking/Psychosocial Hx Smoking History: Never smoked Have you smoked in the past 12 months: No Number of Cigarettes Smoked Daily: 10 If you are a former smoker, when did you quit?: 1970 Information on smoking cessation initiated: No Hx Alcohol Use: No Drug/Substance Use Hx: No Substance Use Type: None <Emre Currie - Last Filed: 08/11/17 03:13> <Camelia Peter - Last Filed: 08/11/17 03:18> - Past Medical History Allergies/Adverse Reactions: Allergies Allergy/AdvReac Type Severity Reaction Status Date / Time No Known Allergies Allergy Verified 08/10/17 21:46 Home Medications: Ambulatory Orders Acetaminophen [Tylenol] 650 mg PO Q6H PRN 05/13/16 Ascorbate Calcium [Vitamin C] 500 mg PO DAILY 05/13/16 Collagenase Clostridium Hist. [Santyl -] 1 applic TP DAILY 05/13/16 Diltiazem HCl [Cardizem LA] 240 mg PO DAILY 05/13/16 Metoprolol Succinate [Toprol Xl] 75 mg PO DAILY 09/14/16 Multivitamin [Poly-Vitamin] 1 each PO DAILY 05/13/16 Digoxin [Lanoxin -] 0.125 mg PO DAILY tablet 05/18/16 Pantoprazole Sodium [Protonix -] 40 mg PO BID tablet.ec 05/18/16 Dabigatran Etexilate Mesylate [Pradaxa -] 150 mg PO BID cap 06/29/16 Ferrous Sulfate [Feosol] 325 mg PO TID 09/05/16 Furosemide 20 mg PO BID 09/05/16 Gentamicin 0.1% Ointment [Garamycin 0.1% Ointment -] 1 applic TP BID 09/05/16 Levothyroxine [Synthroid -] 37.5 mcg PO DAILY@0700 09/05/16 Zinc Sulfate 220 mg PO DAILY 09/05/16 Review of Systems - Review of Systems Able to Perform ROS?: Yes Comments:: 08/10/17 22:28 CONSTITUTIONAL: Absent: fever, chills, diaphoresis, generalized weakness, malaise, loss of appetite HEENT: Absent: rhinorrhea, nasal congestion, throat pain, throat swelling, difficulty swallowing, mouth swelling, ear pain, eye pain, visual Changes CARDIOVASCULAR: Absent: chest pain, syncope, palpitations, irregular heart rate, lightheadedness , peripheral edema RESPIRATORY: Absent: cough, shortness of breath, dyspnea with exertion, orthopnea, wheezing, stridor, hemoptysis GASTROINTESTINAL: Absent: abdominal pain, abdominal distension, nausea, vomiting, diarrhea, constipation, melena, hematochezia GENITOURINARY: Absent: dysuria, frequency, urgency, hesitancy, hematuria, flank pain, genital pain MUSCULOSKELETAL: Absent: myalgia, arthralgia, joint swelling SKIN: Absent: rash, itching, pallor HEMATOLOGIC/IMMUNOLOGIC: Absent: easy bleeding, easy bruising, lymphadenopathy, frequent infections ENDOCRINE: Absent: unexplained weight gain, unexplained weight loss, heat intolerance, cold intolerance NEUROLOGIC: Absent: headache, focal weakness or paresthesias, dizziness, unsteady gait, seizure, mental status changes, bladder or bowel incontinence PSYCHIATRIC: Absent: anxiety, depression, suicidal or homicidal ideation, hallucinations. <Camelia Peter - Last Filed: 08/11/17 03:18> *Physical Exam - Vital Signs Last Vital Signs Temp Pulse Resp BP Pulse Ox 99.1 F 86 20 127/64 96 08/10/17 21:46 08/10/17 21:46 08/10/17 21:46 08/10/17 21:46 08/10/17 21:46 <Emre Currie - Last Filed: 08/11/17 03:13> - Vital Signs Last Vital Signs Temp Pulse Resp BP Pulse Ox 99.1 F 86 20 127/64 96 08/10/17 21:46 08/10/17 21:46 08/10/17 21:46 08/10/17 21:46 08/10/17 21:46 - Physical Exam Comments: 08/10/17 22:28 GENERAL: Well developed, well nourished. Awake and alert. No acute distress. HEENT: Normocephalic, atraumatic. PERRLA, EOMI. No conjunctival pallor. Sclera are non- icteric. Moist mucous membranes. Oropharynx is clear. NECK: Supple. Full ROM. No JVD. Carotid pulses 2+ and symmetric, without bruits. No thyromegaly. No lymphadenopathy. CARDIOVASCULAR: Regular rate and rhythm. No murmurs, rubs, or gallops. Distal pulses are 2+ and symmetric. PULMONARY: No evidence of respiratory distress. Lungs clear to auscultation bilaterally. No wheezing, rales or rhonchi. ABDOMINAL: Soft. Non-tender. Non-distended. No rebound or guarding. No organomegaly. Normoactive bowel sounds. MUSCULOSKELETAL Normal range of motion at all joints. No bony deformities or tenderness. No CVA tenderness. EXTREMITIES: No cyanosis. No clubbing. No edema. No calf tenderness. SKIN: (+) scattered abrasions to right upper extremity. Warm and dry. Normal capillary refill. No rashes. No jaundice. NEUROLOGICAL: Alert, awake, appropriate. Cranial nerves 2-12 intact. Normoreflexic in the upper and lower extremities. Normal speech. Toes are down-going bilaterally. Gait is normal without ataxia. PSYCHIATRIC: Cooperative. Good eye contact. Appropriate mood and affect. <Camelia Peter - Last Filed: 08/11/17 03:18> ED Treatment Course - LABORATORY CBC & Chemistry Diagram: 08/11/17 00:13 08/11/17 00:13 <Emre Currie - Last Filed: 08/11/17 03:13> - LABORATORY CBC & Chemistry Diagram: 08/11/17 00:13 08/11/17 00:13 - RADIOLOGY Radiograph Interpretation: EXAM#: TYPE/EXAM: RESULT: [id number] CT/HEAD CT WITHOUT CONTRAST HISTORY PROVIDED: Dizziness TECHNIQUE: Sequential axial images were obtained from the base of the skull to the vertex. There is no evidence of acute intracranial hemorrhage, mass lesions or infarctions. There is a moderate degree of diffuse cerebral atrophy with sulcal widening and ventricular dilatation. Hypodense changes are noted throughout the periventricular white matter consistent with chronic,small vessel ischemia. IMPRESSION: No evidence of acute intracranial pathology. Reported By: Edwin Villa MD 08/10/17 2331 EXAM: XR PELVIS HISTORY: 79-year-old male fall evaluate for fracture. COMPARISON: None. FINDINGS: Moderate to severe degenerative disc disease in the lower lumbar spine. Mild degenerative joint disease of the hips. Calcified arteriosclerosis of the peripheral vasculature. Constipation with rectal impaction. No acute fracture or dislocation. IMPRESSION: No acute fracture or dislocation. 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 Mild degenerative joint disease of the hips. Calcified arteriosclerosis of the peripheral vasculature. Constipation with rectal impaction. Scott Hou MD 08/11/2017 03:09 EST <Camelia Peter - Last Filed: 08/11/17 03:18> Medical Decision Making - Medical Decision Making 08/11/17 03:14 Dr. Currie: The scribe's documentation has been prepared under my direction and personally reviewed by me in its entirery. I confirm that the note above accurately reflects all work, treatment, procedures, and medical decision making performed by me. Pt will be admitted to Telemetry inpt to follow troponins <Emre Currie - Last Filed: 08/11/17 03:13> - Medical Decision Making 08/11/17 02:38 Imaging systems security consultant ([id number]) was called in reference to the pelvis xray submitted to [facility] at 01:17 and assigned to Dot Rico for official read. The windows laptop technician from [facility] states he left a message with Dr. Rico to read the xray. At this time the xray is still pending an official report. 08/11/17 02:41 Upon refreshing the IO que, I observed the "date submitted" time change from 01 :17 to 02:40. At this time, the assigned radiologist changed from Dot Rico to Scott Hou. 08/11/17 03:07 At this time, the xray read on [facility] is pending, however, the study does appear to be "in reading". Also, the "date submitted" time has changed back from 02:40 to 01:16. 08/11/17 03:17 The xray has been read and negative for fractures or bony deformities (see complete report above) <Camelia Peter - Last Filed: 08/11/17 03:18> *DC/Admit/Observation/Transfer - Discharge Dispostion Admit: Yes <Emre Currie - Last Filed: 08/11/17 03:13> - Attestations Scribe Attestion: 08/10/17 22:28 Documentation prepared by Camelia Peter, acting as certified medical transcriptionist for Emre Currie DO <Camelia Peter - Last Filed: 08/11/17 03:18> Diagnosis at time of Disposition: Rhabdomyolysis, Fall due to stumbling, NSTEMI (non-ST elevated myocardial infarction) - Discharge Dispostion Condition at time of disposition: Stable - Referrals Referrals: Harry Lawrence MD [Primary Care Provider] - - Patient Instructions - Post Discharge Activity
[2017-08-11 00:36] LABS: BASO % 0.3 % (0-2.0); MCH 23.4 pg (25.7-33.7); MCHC 32.5 g/dl (32.0-35.9); MEAN CELL VOLUME 72.1 fl (80-96); MEAN PLT VOLUME 7.4 fl (7.5-11.1); PLATELET COUNT 393 K/MM3 (134-434); RDW 19.7 % (11.9-15.9); WHITE BLOOD COUNT 9.8 K/mm3 (4.0-10.0)
[2017-08-11 00:50] LABS: INR 1.19 (0.82-1.09); PROTHROMBIN TIME (PATIENT) 13.5 SEC (9.98-11.88)
[2017-08-11 01:00] LABS: ALBUMIN 2.7 g/dl (3.4-5.0); ANION GAP 11 (8-16); BILIRUBIN,TOTAL 0.3 mg/dL (0.2-1.0); CALCIUM 8.1 mg/dL (8.5-10.1); CO2 23 mmol/L (21-32); CREATININE 1.3 mg/dL (0.7-1.3); GLUCOSE,RANDOM 117 mg/dL (74-106); SGOT/AST 58 U/L (15-37); SGPT/ALT 21 U/L (12-78); TOT PROT 6.9 g/dl (6.4-8.2)
[2017-08-11 01:12] LABS: ALK PHOS 69 U/L (45-117)
[2017-08-11 01:24] LABS: CPK 2372 IU/L (39-308)
[2017-08-11] MEDS ORDERED: SODIUM CHLORIDE 1,000 ML IV SCH (03:00)
[2017-08-11 03:12] LABS: URINE APPEARANCE CLOUDY; URINE BILIRUBIN NEGATIVE (NEGATIVE); URINE BLOOD 2+ (NEGATIVE); URINE COLOR YELLOW; URINE GLUCOSE (UA) NEGATIVE (NEGATIVE); URINE KETONE NEGATIVE (NEGATIVE); URINE LEUK ESTERASE NEGATIVE (NEGATIVE); URINE NITRITE NEGATIVE (NEGATIVE); URINE UROBILINOGEN NEGATIVE mg/dL (0.2-1.0)
[2017-08-11 03:15] LABS: URINE PROTEIN 2+ (NEGATIVE)
[2017-08-11 03:16] LABS: URINE BACTERIA MANY /hpf (NONE SEEN); URINE MUCUS RARE; URINE RBC <1 /hpf (0-3); URINE WBC 4 /hpf (3-5)
[2017-08-11] MEDS ORDERED: ACETAMINOPHEN 325 MG TABLET (FP) PO PRN (09:31)
--- NOTE | 2017-08-11 09:36 | HP ---
Admitting History and Physical - Primary Care Physician PCP: Britany Yuen S - Admission Chief Complaint: fall, weakness History of Present Illness: The patient is an 87 year old male with a significant past medical history of a- fib, hypothyroidism, HTN, HLD, pressure ulcer, and osteoarthritis who is arrived to the Emergency Department via EMS from [facility] s/p slip and fall this evening. The patient denies head trauma. He denies any complaints of pain at this time. He denies chest pain, shortness of breath, headache and dizziness. He denies fever, chills, nausea, vomit, diarrhea and constipation. He denies dysuria, frequency, urgency and hematuria. History Source: Patient, Medical Record, Transfer Record Limitations to Obtaining History: No Limitations - Past Medical History Cardiovascular: Yes: HTN, Hyperlipdemia Pulmonary: Yes: COPD, Pneumonia Gastrointestinal: Yes: Diverticulosis, Peptic Ulcer Disease Renal/: Yes: Renal Failure Heme/Onc: Yes: Anemia Musculoskeletal: Yes: Osteoarthritis (knees) - Smoking History Smoking history: Never smoked Have you smoked in the past 12 months: No Aproximately how many cigarettes per day: 10 If you are a former smoker, when did you quit?: 1969 - Alcohol/Substance Use Hx Alcohol Use: No History of Substance Use: reports: None - Social History Usual Living Arrangement: Yes: Snf ADL: Independent Occupation: Retired javascript engineer, single History of Recent Travel: No Home Medications - Allergies Allergies/Adverse Reactions: Allergies Allergy/AdvReac Type Severity Reaction Status Date / Time No Known Allergies Allergy Verified 08/10/17 21:46 - Home Medications Home Medications: Ambulatory Orders Acetaminophen [Tylenol] 650 mg PO Q4H PRN 05/13/16 Ascorbate Calcium [Vitamin C] 500 mg PO DAILY 05/13/16 Diltiazem HCl [Cardizem LA] 240 mg PO DAILY 05/13/16 Metoprolol Succinate [Toprol Xl] 75 mg PO DAILY 05/13/16 Digoxin [Lanoxin -] 0.125 mg PO DAILY tablet 05/18/16 Dabigatran Etexilate Mesylate [Pradaxa -] 150 mg PO BID cap 06/29/16 Ferrous Sulfate [Feosol] 325 mg PO TID 09/05/16 Furosemide 20 mg PO BID 09/05/16 Gentamicin 0.1% Ointment [Garamycin 0.1% Ointment -] 1 applic TP BID 09/05/16 Levothyroxine [Synthroid -] 37.5 mcg PO DAILY@0700 09/05/16 Aa/Hydrolyzed Collagen, Whey [Lps Neutral Flavor Liquid] 30 ml PO BID 08/11/17 Albuterol 2.5/Ipratropium 0.5 [Duoneb -] 1 neb IH QID PRN 08/11/17 Ranitidine [Zantac -] 150 mg PO BID 08/11/17 Vitamin B Comp W-C [Nephro-Kendal -] 1 tablet PO DAILY 08/11/17 Family Disease History - Family Disease History Family Disease History: Other: Father ( 52 of bowel obstruction), Mother ( 79 of CVA), Sister ( 70's sudden in sleep) Review of Systems - Review of Systems Constitutional: reports: Weakness. denies: Chills, Fever, Lethargy Eyes: denies: Blind Spots, Double Vision HENT: denies: Difficult Swallowing, Epistaxis Neck: denies: Pain on Movement, Stiffness, Tenderness Cardiovascular: denies: Chest Pain, Shortness of Breath Respiratory: denies: Cough, SOB Gastrointestinal: denies: Abdominal Pain, Rectal Bleeding, Vomiting Genitourinary: denies: Dysuria, Flank Pain Musculoskeletal: denies: Back Pain, Joint Pain Integumentary: denies: Change in Color, Pruritis, Rash Neurological: denies: Change in LOC, Change in Speech, Dizziness, Headache, Seizure, Syncope, Tremors Hematology/Lymphatic: denies: Easily Bruised, Excessive Bleeding, Swollen Glands Psychiatric: denies: Anxiety, Depression Physical Examination Vital Signs: Vital Signs Temperature 99.1 F 08/10/17 21:46 Pulse Rate 74 08/11/17 06:52 Respiratory Rate 18 08/11/17 06:52 Blood Pressure 130/61 08/11/17 06:52 O2 Sat by Pulse Oximetry (%) 96 08/11/17 06:52 Constitutional: Yes: No Distress, Calm Eyes: Yes: Conjunctiva Clear HENT: Yes: Atraumatic Neck: Yes: Supple Cardiovascular: No: Regular Rate and Rhythm Respiratory: Yes: CTA Bilaterally Gastrointestinal: Yes: Soft. No: Distention, Tenderness Renal/: No: CVA Tenderness - Left, CVA Tenderness - Right Musculoskeletal: No: Joint Stiffness, Joint Swelling Extremities: No: Cold, Cool, Cyanosis Edema: No Integumentary: No: Rash, Skin Tear, Venous Stasis Changes Neurological: Yes: WNL, Alert, Oriented ...Motor Strength: WNL Psychiatric: Yes: WNL, Alert, Oriented. No: Agitated, Suicidal Ideation Labs: CBC, BMP 08/11/17 00:13 08/11/17 00:13 Imaging - Results Chest X-ray: Report Reviewed Other: Report Reviewed Assessment/Plan The patient is an 87 year old male with a significant past medical history of a- fib, hypothyroidism, HTN, HLD, pressure ulcer, and osteoarthritis who is arrived to the Emergency Department via EMS [facility] s/p slip and fall found be be in acute rhabdomyolysis and anemic, also + troponins, and admitted for further w/u and treatment. IVF, watch for CHF f/u CE, echo admitted to telemetry cardio and GI eval f/u labs aspiration, decubs, falls, DVT, gastric PFX dw pt and staff
--- NOTE | 2017-08-11 09:40 | CON.CARD ---
Consult Consult Specialty:: Cardiology - History of Present Illness History of Present Illness: The patient is an 87 year old male with a significant past medical history of a- fib, hypothyroidism, HTN, HLD, pressure ulcer, and osteoarthritis who is arrived to the Emergency Department via EMS from [facility] s/p slip and fall this evening. The patient denies head trauma. He denies any complaints of pain at this time. - History Source History Provided By: Patient, Medical Record - Past Medical History Cardio/Vascular: Yes: HTN, Hyperlipdemia Pulmonary: Yes: COPD, Pneumonia Gastrointestinal: Yes: Diverticulosis, Peptic Ulcer Disease Renal/: Yes: Renal Failure Musculoskeletal: Yes: Osteoarthritis (knees) - Alcohol/Substance Use Hx Alcohol Use: No History of Substance Use: reports: None - Smoking History Smoking history: Never smoked Have you smoked in the past 12 months: No Aproximately how many cigarettes per day: 10 If you are a former smoker, when did you quit?: 1969 - Social History Usual Living Arrangement: Alone ADL: Independent Occupation: Retired engineering specialist technician, single History of Recent Travel: No Home Medications - Allergies Allergies/Adverse Reactions: Allergies Allergy/AdvReac Type Severity Reaction Status Date / Time No Known Allergies Allergy Verified 08/10/17 21:46 - Home Medications Home Medications: Ambulatory Orders Acetaminophen [Tylenol] 650 mg PO Q6H PRN 05/13/16 Ascorbate Calcium [Vitamin C] 500 mg PO DAILY 05/13/16 Collagenase Clostridium Hist. [Santyl -] 1 applic TP DAILY 05/13/16 Diltiazem HCl [Cardizem LA] 240 mg PO DAILY 05/13/16 Metoprolol Succinate [Toprol Xl] 75 mg PO DAILY 05/13/16 Multivitamin [Poly-Vitamin] 1 each PO DAILY 05/13/16 Digoxin [Lanoxin -] 0.125 mg PO DAILY tablet 05/18/16 Pantoprazole Sodium [Protonix -] 40 mg PO BID tablet.ec 05/18/16 Dabigatran Etexilate Mesylate [Pradaxa -] 150 mg PO BID cap 06/29/16 Ferrous Sulfate [Feosol] 325 mg PO TID 09/05/16 Furosemide 20 mg PO BID 09/05/16 Gentamicin 0.1% Ointment [Garamycin 0.1% Ointment -] 1 applic TP BID 01/07/17 Levothyroxine [Synthroid -] 37.5 mcg PO DAILY@0700 09/05/16 Zinc Sulfate 220 mg PO DAILY 09/05/16 Family Disease History - Family Disease History Family Disease History: Other: Father ( 52 of bowel obstruction), Mother ( 79 of CVA), Sister ( 70's sudden in sleep) Review of Systems - Review of Systems Constitutional: reports: No Symptoms Eyes: reports: No Symptoms HENT: reports: No Symptoms Neck: reports: No Symptoms Cardiovascular: reports: No Symptoms Gastrointestinal: reports: No Symptoms Genitourinary: reports: No Symptoms Breasts: reports: No Symptoms Reported Musculoskeletal: reports: No Symptoms Integumentary: reports: No Symptoms Neurological: reports: No Symptoms Endocrine: reports: No Symptoms Hematology/Lymphatic: reports: No Symptoms Psychiatric: reports: No Symptoms Vital Signs: Vital Signs Temperature 99.1 F 08/10/17 21:46 Pulse Rate 74 08/11/17 06:52 Respiratory Rate 18 08/11/17 06:52 Blood Pressure 130/61 08/11/17 06:52 O2 Sat by Pulse Oximetry (%) 96 08/11/17 06:52 Constitutional: Yes: Well Nourished, No Distress, Calm Eyes: Yes: WNL, Conjunctiva Clear, EOM Intact HENT: Yes: WNL, Atraumatic, Normocephalic Neck: Yes: WNL, Supple, Trachea Midline Respiratory: Yes: WNL, Regular, CTA Bilaterally Gastrointestinal: Yes: WNL, Normal Bowel Sounds Renal/: Yes: WNL Cardiovascular: Yes: WNL, Regular Rate and Rhythm Musculoskeletal: Yes: WNL Extremities: Yes: WNL Integumentary: Yes: WNL Neurological: Yes: WNL, Alert, Oriented ...Motor Strength: WNL Psychiatric: Yes: WNL, Alert, Oriented - Other Data Labs, Other Data: CBC, BMP 08/11/17 00:13 08/11/17 00:13 INR, PTT INR 1.19 (0.82-1.09) H 08/11/17 00:13 Troponin, BNP 08/11/17 00:13 Troponin I 0.10 H D Troponin, BNP 08/11/17 00:13 Troponin I 0.10 H D Laboratory Tests 08/11/17 08/11/17 08/11/17 00:13 00:13 00:13 WBC 9.8 D RBC 3.53 L Hgb 8.3 L Hct 25.4 L MCV 72.1 L MCH 23.4 L MCHC 32.5 RDW 19.7 H Plt Count 393 D MPV 7.4 L Neutrophils % 86.0 H Lymphocytes % 4.5 L D Monocytes % 9.2 Eosinophils % 0.0 D Basophils % 0.3 PT with INR 13.50 H INR 1.19 H Sodium 137 Potassium 4.5 Chloride 103 Carbon Dioxide 23 Anion Gap 11 BUN 28 H Creatinine 1.3 Creat Clearance w eGFR 52.10 Random Glucose 117 H D Calcium 8.1 L Magnesium 2.0 Total Bilirubin 0.3 D AST 58 H D ALT 21 Alkaline Phosphatase 69 Creatine Kinase 2372 H Creatine Kinase Index 0.7 CK-MB (CK-2) 17.087 H Troponin I 0.10 H D Total Protein 6.9 Albumin 2.7 L D Lipase 172 Urine Color Urine Appearance Urine pH Ur Specific [place] Urine Protein Urine Glucose (UA) Urine Ketones Urine Blood Urine Nitrite Urine Bilirubin Urine Urobilinogen Ur Leukocyte Esterase Urine WBC (Auto) Urine RBC (Auto) Urine Bacteria Urine Mucus 08/11/17 03:00 WBC RBC Hgb Hct MCV MCH MCHC RDW Plt Count MPV Neutrophils % Lymphocytes % Monocytes % Eosinophils % Basophils % PT with INR INR Sodium Potassium Chloride Carbon Dioxide Anion Gap BUN Creatinine Creat Clearance w eGFR Random Glucose Calcium Magnesium Total Bilirubin AST ALT Alkaline Phosphatase Creatine Kinase Creatine Kinase Index CK-MB (CK-2) Troponin I Total Protein Albumin Lipase Urine Color Yellow Urine Appearance Cloudy Urine pH 5.0 Ur Specific [place] 1.015 Urine Protein 2+ H Urine Glucose (UA) Negative Urine Ketones Negative Urine Blood 2+ H Urine Nitrite Negative Urine Bilirubin Negative Urine Urobilinogen Negative Ur Leukocyte Esterase Negative Urine WBC (Auto) 4 Urine RBC (Auto) <1 Urine Bacteria Many Urine Mucus Rare Imaging - Results Chest X-ray: Image Reviewed (no i/e) EKG: Image Reviewed (sr lvh rep abn ? dig effect) Problem List - Problems (1) Diarrhea Code(s): R19.7 - DIARRHEA, UNSPECIFIED (2) Diverticula of colon Code(s): K57.30 - DVRTCLOS OF LG INT W/O PERFORATION OR ABSCESS W/O BLEEDING (3) Fall due to stumbling Code(s): W01.0XXA - FALL SAME LEV FROM SLIP/TRIP W/O STRIKE AGAINST OBJECT, INIT (4) History of bleeding peptic ulcer Code(s): Z87.11 - PERSONAL HISTORY OF PEPTIC ULCER DISEASE (5) NSTEMI (non-ST elevated myocardial infarction) Code(s): I21.4 - NON-ST ELEVATION (NSTEMI) MYOCARDIAL INFARCTION (6) Occult blood in stools Code(s): R19.5 - OTHER FECAL ABNORMALITIES (7) Rhabdomyolysis Code(s): M62.82 - RHABDOMYOLYSIS (8) Anemia Code(s): D64.9 - ANEMIA, UNSPECIFIED Qualifiers: Anemia type: iron deficiency Iron deficiency anemia type: chronic blood loss Qualified Code(s): D50.0 - Iron deficiency anemia secondary to blood loss (chronic) (9) Atrial fibrillation Code(s): I48.91 - UNSPECIFIED ATRIAL FIBRILLATION (10) Atrial flutter with rapid ventricular response Code(s): I48.92 - UNSPECIFIED ATRIAL FLUTTER (11) Bacteremia Code(s): R78.81 - BACTEREMIA (12) CHF (congestive heart failure) Code(s): I50.9 - HEART FAILURE, UNSPECIFIED (13) COPD (chronic obstructive pulmonary disease) Code(s): J44.9 - CHRONIC OBSTRUCTIVE PULMONARY DISEASE, UNSPECIFIED (14) CRF (chronic renal failure) Code(s): N18.9 - CHRONIC KIDNEY DISEASE, UNSPECIFIED (15) Decubitus ulcer of sacral area Code(s): L89.159 - PRESSURE ULCER OF SACRAL REGION, UNSPECIFIED STAGE Qualifiers: Pressure ulcer stage: unstageable Qualified Code(s): L89.150 - Pressure ulcer of sacral region, unstageable (16) Dehydration Code(s): E86.0 - DEHYDRATION (17) Dehydration, mild Code(s): E86.0 - DEHYDRATION (18) GI bleeding Code(s): K92.2 - GASTROINTESTINAL HEMORRHAGE, UNSPECIFIED (19) Gram-positive bacteremia Code(s): A49.9 - BACTERIAL INFECTION, UNSPECIFIED (20) HTN (hypertension) Code(s): I10 - ESSENTIAL (PRIMARY) HYPERTENSION (21) Hypercholesteremia Code(s): E78.0 - PURE HYPERCHOLESTEROLEMIA * DO NOT USE * (22) Influenza B Code(s): J10.1 - FLU DUE TO OTH IDENT INFLUENZA VIRUS W OTH RESP MANIFEST (23) Left ventricular diastolic dysfunction Code(s): I51.9 - HEART DISEASE, UNSPECIFIED (24) Leukocytosis Code(s): D72.829 - ELEVATED WHITE BLOOD CELL COUNT, UNSPECIFIED (25) Pleural effusion Code(s): J90 - PLEURAL EFFUSION, NOT ELSEWHERE CLASSIFIED (26) Pneumonia Code(s): J18.9 - PNEUMONIA, UNSPECIFIED ORGANISM Qualifiers: Pneumonia type: due to unspecified organism Laterality: bilateral Lung location: unspecified part of lung Qualified Code(s): J18.9 - Pneumonia, unspecified organism (27) Pneumonia as manifestation of parasitic disease Code(s): J18.9 - PNEUMONIA, UNSPECIFIED ORGANISM; B89 - UNSPECIFIED PARASITIC DISEASE (28) Pulmonary hypertension Code(s): I27.2 - OTHER SECONDARY PULMONARY HYPERTENSION * DO NOT USE * (29) Sacral decubitus ulcer, stage II Code(s): L89.152 - PRESSURE ULCER OF SACRAL REGION, STAGE 2 (30) Stage III pressure ulcer of sacral region Code(s): L89.153 - PRESSURE ULCER OF SACRAL REGION, STAGE 3 (31) UTI (urinary tract infection) Code(s): N39.0 - URINARY TRACT INFECTION, SITE NOT SPECIFIED (32) Weakness Code(s): R53.1 - WEAKNESS Assessment/Plan s/p fall r/o rhabdo ck mb neg borderline high tni paf on digoxin hypothyroidism, HTN, HLD, pressure ulcer, and osteoarthritis Plan echo ivf d/c digoxin cont ac and cardizem toprol for rate control
[2017-08-11] MEDS ORDERED: FUROSEMIDE 20 MG TABLET (FP) PO SCH (10:00)
[2017-08-11] MEDS ORDERED: DIGOXIN 0.125 MG TABLET (FP) PO SCH (10:00)
[2017-08-11] MEDS ORDERED: ASCORBIC ACID 500 MG TABLET (FP) PO SCH (10:00)
[2017-08-11 10:06] LABS: URINE LEUK ESTERASE NEGATIVE (NEGATIVE)
--- NOTE | 2017-08-11 10:18 | CON.GI ---
Consult Consult Specialty:: Gastroenterology Referred by:: Dr Yuen Reason for Consultation:: Diarrhea - History of Present Illness Chief Complaint: Fell from bed at assisted History of Present Illness: 87M transferred from [facility] after falling from his bed onto his buttocks. He denies abdominal pain but does c/o chronic diarrhea. He denies any rectal bleeding. He is well known to our group from previous consultations for anemia. When he presented with a Hb of 7.4 in 03/14 I performed an EGD and a colonoscopy. EGD on 03/13/16 revealed a duodenal bulb ulcer with visible vessel and Abhay ulcer within a hiatal hernia. Colonoscopy revealed diverticulosis in the left colon. No colitis was seen. He denies recent foreign travel but cannot exclude recent antibiotic exposures. He did require several debridements of a large sacral ulcer. - History Source History Provided By: Patient, Medical Record Limitations to Obtaining History: Poor Historian - Past Medical History Cardio/Vascular: Yes: AFIB (paroxysmal atrial flutter), Aortic Stenosis, CHF, HTN, Hyperlipdemia, Mitral Insufficiency, Murmur (suggestive of , also MR), Pulmonary Hypertension Pulmonary: Yes: COPD, Pneumonia Gastrointestinal: Yes: Diverticulosis, Peptic Ulcer Disease Renal/: Yes: Renal Failure Heme/Onc: Yes: Anemia Musculoskeletal: Yes: Osteoarthritis (knees) - Past Surgical History Past Surgical History: Yes: Arthrosocopy (right knee), Colonoscopy, Upper Endoscopy Additional Surgical History: sacral decubitus debridements - Alcohol/Substance Use Hx Alcohol Use: No History of Substance Use: reports: None - Smoking History Smoking history: Never smoked Have you smoked in the past 12 months: No Aproximately how many cigarettes per day: 10 If you are a former smoker, when did you quit?: 1969 - Social History Usual Living Arrangement: Snf ADL: Support Services 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 History of Recent Travel: No Home Medications - Allergies Allergies/Adverse Reactions: Allergies Allergy/AdvReac Type Severity Reaction Status Date / Time No Known Allergies Allergy Verified 08/10/17 21:46 - Home Medications Home Medications: Ambulatory Orders Acetaminophen [Tylenol] 650 mg PO Q6H PRN 05/13/16 Ascorbate Calcium [Vitamin C] 500 mg PO DAILY 05/13/16 Collagenase Clostridium Hist. [Santyl -] 1 applic TP DAILY 05/13/16 Diltiazem HCl [Cardizem LA] 240 mg PO DAILY 05/13/16 Metoprolol Succinate [Toprol Xl] 75 mg PO DAILY 05/13/16 Multivitamin [Poly-Vitamin] 1 each PO DAILY 05/13/16 Digoxin [Lanoxin -] 0.125 mg PO DAILY tablet 05/18/16 Pantoprazole Sodium [Protonix -] 40 mg PO BID tablet.ec 05/18/16 Dabigatran Etexilate Mesylate [Pradaxa -] 150 mg PO BID cap 06/29/16 Ferrous Sulfate [Feosol] 325 mg PO TID 09/05/16 Furosemide 20 mg PO BID 09/05/16 Gentamicin 0.1% Ointment [Garamycin 0.1% Ointment -] 1 applic TP BID 09/05/16 Levothyroxine [Synthroid -] 37.5 mcg PO DAILY@0700 09/05/16 Zinc Sulfate 220 mg PO DAILY 09/05/16 Family Disease History - Family Disease History Family Disease History: Other: Father ( 52 of bowel obstruction), Mother ( 79 of CVA), Sister ( 70's sudden in sleep) Review of Systems - Review of Systems Constitutional: reports: Weakness Eyes: reports: No Symptoms HENT: reports: No Symptoms Neck: reports: No Symptoms Cardiovascular: reports: No Symptoms Respiratory: reports: SOB on Exertion Gastrointestinal: reports: Diarrhea Genitourinary: reports: No Symptoms Musculoskeletal: reports: Joint Pain Physical Exam-GI Vital Signs: Vital Signs Temperature 99.1 F 08/10/17 21:46 Pulse Rate 74 08/11/17 06:52 Respiratory Rate 18 08/11/17 06:52 Blood Pressure 130/61 08/11/17 06:52 O2 Sat by Pulse Oximetry (%) 96 08/11/17 06:52 CBC,CMP WBC 9.8 K/mm3 (4.0-10.0) D 08/11/17 00:13 RBC 3.53 M/mm3 (4.00-5.60) L 08/11/17 00:13 Hgb 8.3 GM/dL (11.7-16.9) L 08/11/17 00:13 Hct 25.4 % (35.4-49) L 08/11/17 00:13 MCV 72.1 fl (80-96) L 08/11/17 00:13 MCH 23.4 pg (25.7-33.7) L 08/11/17 00:13 MCHC 32.5 g/dl (32.0-35.9) 08/11/17 00:13 RDW 19.7 % (11.9-15.9) H 08/11/17 00:13 Plt Count 393 K/MM3 (134-434) D 08/11/17 00:13 MPV 7.4 fl (7.5-11.1) L 08/11/17 00:13 Neutrophils % 86.0 % (42.8-82.8) H 08/11/17 00:13 Lymphocytes % 4.5 % (8-40) L D 08/11/17 00:13 Monocytes % 9.2 % (3.8-10.2) 08/11/17 00:13 Eosinophils % 0.0 % (0-4.5) D 08/11/17 00:13 Basophils % 0.3 % (0-2.0) 08/11/17 00:13 Sodium 137 mmol/L (136-145) 08/11/17 00:13 Potassium 4.5 mmol/L (3.5-5.1) 08/11/17 00:13 Chloride 103 mmol/L (98-107) 08/11/17 00:13 Carbon Dioxide 23 mmol/L (21-32) 08/11/17 00:13 Anion Gap 11 (8-16) 08/11/17 00:13 BUN 28 mg/dL (7-18) H 08/11/17 00:13 Creatinine 1.3 mg/dL (0.7-1.3) 08/11/17 00:13 Creat Clearance w eGFR 52.10 (>60) 08/11/17 00:13 Random Glucose 117 mg/dL (74-106) H D 08/11/17 00:13 Calcium 8.1 mg/dL (8.5-10.1) L 08/11/17 00:13 Magnesium 2.0 mg/dL (1.8-2.4) 08/11/17 00:13 Total Bilirubin 0.3 mg/dL (0.2-1.0) D 08/11/17 00:13 AST 58 U/L (15-37) H D 08/11/17 00:13 ALT 21 U/L (12-78) 08/11/17 00:13 Alkaline Phosphatase 69 U/L (45-117) 08/11/17 00:13 Creatine Kinase 2372 IU/L (39-308) H 08/11/17 00:13 Creatine Kinase Index 0.7 % (0.0-5.0) 08/11/17 00:13 CK-MB (CK-2) 17.087 ng/mL (0.5-3.6) H 08/11/17 00:13 Troponin I 0.10 ng/ml (0.00-0.05) H D 08/11/17 00:13 Total Protein 6.9 g/dl (6.4-8.2) 08/11/17 00:13 Albumin 2.7 g/dl (3.4-5.0) L D 08/11/17 00:13 Lipase 172 U/L (73-393) 08/11/17 00:13 Current Medications Generic Name Dose Route Start Last Admin Trade Name Freq PRN Reason Stop Dose Admin Acetaminophen 650 mg 08/11/17 09:31 Tylenol - PO Q6H PRN PAIN Collagenase 1 applic 08/11/17 10:00 Santyl - TP DAILY BALDOMERO Dabigatran 150 mg 08/11/17 10:00 Pradaxa - PO BID BALDOMERO Digoxin 0.125 mg 08/11/17 10:00 Lanoxin - PO DAILY BALDOMERO Furosemide 20 mg 08/11/17 10:00 Lasix - PO BID BALDOMERO Gentamicin Sulfate 1 applic 08/11/17 10:00 Garamycin 0.1% Ointment - TP BID [facility] Sodium Chloride 1,000 mls @ 75 mls/hr 08/11/17 09:36 Normal Saline - IV ASDIR BALDOMERO Levothyroxine Sodium 37.5 mcg 08/12/17 07:00 Synthroid - PO DAILY@0700 BALDOMERO Metoprolol Succinate 75 mg 08/11/17 10:00 Toprol Xl - PO DAILY BALDOMERO Non-Formulary Medication 240 mg 08/11/17 10:00 Diltiazem Hcl [Cardizem La] PO DAILY BALDOMERO Non-Formulary Medication 325 mg 08/11/17 14:00 Ferrous Sulfate [Feosol] PO TID BALDOMERO Non-Formulary Medication 1 each 08/11/17 10:00 Multivitamin [Poly-Vitamin] PO DAILY [facility] Non-Formulary Medication 220 mg 08/11/17 10:00 Zinc Sulfate [Zinc Sulfate] PO DAILY [facility] Pantoprazole Sodium 40 mg 08/11/17 10:00 Protonix - PO BID BALDOMERO Constitutional: Yes: Calm Eyes: Yes: Conjunctiva Clear HENT: Yes: Atraumatic Neck: Yes: Supple Cardiovascular: Yes: Regular Rate and Rhythm, Murmur (2/6 TACOS at base radiating into carotids, holosystolic 2/6 TACOS at apex) Respiratory: Yes: CTA Bilaterally Gastrointestinal Inspection: Yes: WNL ...Auscultate: Yes: Normoactive Bowel Sounds ...Palpate: Yes: Soft, Other (nontender) ...Percussion: Yes: Tympanitic ...Rectal Exam: Yes: Guaiac Positive (loose brown guaiac positive stool) Genitourinary: Yes: Other (2+ prostate, no masses) Edema: No Peripheral Pulses WNL: Yes Labs: CBC, BMP 08/11/17 00:13 08/11/17 00:13 INR, PTT INR 1.19 (0.82-1.09) H 08/11/17 00:13 Problem List - Problems (1) Diarrhea Assessment/Plan: I suspect that this diarrhea will prove to be paradoxical and due to fecal impaction and constipation. Will screen for infectious diarrhea given antibiotic and hospital exposures and get FUA. Code(s): R19.7 - DIARRHEA, UNSPECIFIED (2) Occult blood in stools Assessment/Plan: GIven past peptic ulcer bleeding history agree with PPI BID. If Hb begins to drop will need to consider repeat EGD and suspension of antiplatelet drug. He may have chronic indolent bleeding from small bowel vascular ectasias. This would require an outpatient referral to Dr Prado for a capsule endoscopy. Code(s): R19.5 - OTHER FECAL ABNORMALITIES (3) Diverticula of colon Code(s): K57.30 - DVRTCLOS OF LG INT W/O PERFORATION OR ABSCESS W/O BLEEDING (4) History of bleeding peptic ulcer Assessment/Plan: May need repeat EGD if Hct drops. Contineu PPI. Code(s): Z87.11 - PERSONAL HISTORY OF PEPTIC ULCER DISEASE (5) Anemia Assessment/Plan: The microcytic anemia suggests chronic GI losses as typically occur with small bowel vascular ectasia bleeding and which are accelerated by any anticoagulation. Code(s): D64.9 - ANEMIA, UNSPECIFIED Qualifiers: Anemia type: iron deficiency Iron deficiency anemia type: chronic blood loss Qualified Code(s): D50.0 - Iron deficiency anemia secondary to blood loss (chronic)
--- NOTE | 2017-08-11 11:07 | EKG ---
Test Reason : Blood Pressure : / mmHG Vent. Rate : 083 BPM Atrial Rate : 083 BPM P-R Int : 140 ms QRS Dur : 068 ms QT Int : 414 ms P-R-T Axes : 000 075 036 degrees QTc Int : 486 ms SINUS RHYTHM WITH PREMATURE ATRIAL COMPLEXES LEFT VENTRICULAR HYPERTROPHY WITH REPOLARIZATION ABNORMALITY PROLONGED QT ABNORMAL ECG WHEN COMPARED WITH ECG OF 04-SEP-2016 16:32, SINUS RHYTHM HAS REPLACED JUNCTIONAL RHYTHM ST NOW DEPRESSED IN LATERAL LEADS NONSPECIFIC T WAVE ABNORMALITY HAS REPLACED INVERTED T WAVES IN INFERIOR LEADS QT HAS LENGTHENED Confirmed by SULMA MEJIA, KONG ([id number]) on 08/11/2017 11:07:13 AM Referred By: Confirmed By:KONG OZUNA MD
[2017-08-11] MEDS: SODIUM CHLORIDE 1,000 ML IV SCH ×2 (11:47→20:52)
[2017-08-11] MEDS: METOPROLOL SUCCINATE 50 MG TAB.SR.24H (FP) PO SCH (11:48)
[2017-08-11] MEDS: ZINC SULFATE 220 MG CAPSULE (FP) PO SCH (11:48)
[2017-08-11] MEDS: PANTOPRAZOLE 40 MG TABLET (FP) PO SCH ×2 (11:48→21:03)
[2017-08-11] MEDS: MULTIVITAMINS (DAILY MVI) TABLET (FP) PO SCH (11:48)
[2017-08-11] MEDS: DABIGATRAN ETEXILATE MESYLATE 150 MG CAPSULE PO SCH ×2 (11:48→22:34)
[2017-08-11] MEDS: ASCORBIC ACID 500 MG TABLET (FP) PO SCH (11:48)
--- NOTE | 2017-08-11 11:50 | CONSULT ---
Consult - text type - Consultation Consultation Note: FULL CONSULT DICTATED IMP: NO ACUTE FX, + CONTRACTURES BLE PLAN:NTD, OOB, PT DISCHARGE WHEN MEDICALLY OK
[2017-08-11] MEDS ORDERED: ALBUTEROL SO4 2.5/IPRATROPIUM 0.5 INH SOL 3 ML VIAL.NEB. NEB PRN (13:39)
[2017-08-11] MEDS ORDERED: FERROUS SO4 325 MG TABLET (FP) PO SCH (14:00)
--- NOTE | 2017-08-11 14:59 | CONS ---
DATE OF CONSULTATION: 08/11/2017 ORTHOPEDIC EMERGENCY ROOM CONSULTATION/[facility] Patient is an 87-year-old male who presents to ER complaining of some vague pain, questionable fall. Orthopedic consultation was thus ordered to evaluate the potential fractures. PHYSICAL EXAMINATION: He has no ecchymosis, swelling, or erythema in any location. He has equal limb length. He has no point tenderness at any location. He does have a flexure contracture of both hips and knees of about 20 degrees to 30 degrees. Calf is soft, nontender, neurovascularly intact. No pain with passive range of motion of hips, knees, ankles, and toes. IMAGING: X-rays of bilateral hips and pelvis are negative for fracture, dislocation, or lytic or blastic lesions. IMPRESSION: No acute fracture. Positive lower extremity contractures. PLAN: Nothing to do orthopedically. He should have a physical therapy consultation and discharge planning once medically optimized. EUN MEDLEY M.D. [id number]
[2017-08-11] MEDS: FERROUS SO4 325 MG TABLET (FP) PO SCH ×2 (18:00→21:03)
[2017-08-11] MEDS ORDERED: PT OWN MED DRAWER 7, Y5N ONE (20:51)
[2017-08-11] MEDS: RANITIDINE HCL 150 MG TABLET (FP) PO SCH (21:03)
[2017-08-12] MEDS: GENTAMICIN SO4 0.1% TOPICAL OINTMENT 15 GM/TUBE TUBE TP SCH ×4 (01:15→21:06)
[2017-08-12] MEDS: LEVOTHYROXINE NA 25 MCG TABLET (FP) PO SCH (06:12)
[2017-08-12] MEDS: FERROUS SO4 325 MG TABLET (FP) PO SCH ×3 (06:12→21:06)
--- NOTE | 2017-08-12 06:35 | PN ---
Progress Note, Physician Chief Complaint: in bed awake alert NAD no new VSS consults appreciated and d/w pt - Current Medication List Current Medications: Active Medications Acetaminophen (Tylenol -) 650 mg PO Q6H PRN PRN Reason: PAIN Albuterol/Ipratropium (Duoneb -) 1 amp NEB Q6H PRN PRN Reason: SHORT OF BREATH/WHEEZING Ascorbic Acid (Vitamin C -) 500 mg PO DAILY [facility] Last Admin: 08/11/17 11:48 Dose: 500 mg Collagenase (Santyl -) 1 applic TP DAILY [facility] Dabigatran (Pradaxa -) 150 mg PO BID [facility] Last Admin: 08/11/17 22:34 Dose: 150 mg Diltiazem HCl (Cardizem Cd -) 240 mg PO DAILY [facility] Last Admin: 08/11/17 11:47 Dose: 240 mg Ferrous Sulfate (Feosol -) 325 mg PO TID [facility] Last Admin: 08/12/17 06:12 Dose: 325 mg Gentamicin Sulfate (Garamycin 0.1% Ointment -) 1 applic TP BID [facility] Last Admin: 08/12/17 01:15 Dose: Not Given Sodium Chloride (Normal Saline -) 1,000 mls @ 75 mls/hr IV ASDIR [facility] Last Admin: 08/11/17 20:52 Dose: 75 mls/hr Levothyroxine Sodium (Synthroid -) 37.5 mcg PO DAILY@0700 [facility] Last Admin: 08/12/17 06:12 Dose: 37.5 mcg Metoprolol Succinate (Toprol Xl -) 75 mg PO DAILY [facility] Last Admin: 08/11/17 11:48 Dose: 75 mg Multivit/Ca Carb/B Cmplx/FA/Prenat (Nephro-Kendal -) 1 tablet PO DAILY [facility] Multivitamins/Minerals/Vitamin C (Tab-A-Vit -) 1 tab PO DAILY [facility] Last Admin: 08/11/17 11:48 Dose: 1 tab Pantoprazole Sodium (Protonix -) 40 mg PO BID [facility] Last Admin: 08/11/17 21:03 Dose: 40 mg Ranitidine HCl (Zantac -) 150 mg PO BID [facility] Last Admin: 08/11/17 21:03 Dose: 150 mg Zinc Sulfate (Orazinc -) 220 mg PO DAILY [facility] Last Admin: 08/11/17 11:48 Dose: 220 mg - Objective Vital Signs: Vital Signs Temperature 97.9 F 08/12/17 06:00 Pulse Rate 66 08/12/17 06:00 Respiratory Rate 18 08/12/17 06:00 Blood Pressure 104/46 08/12/17 06:00 O2 Sat by Pulse Oximetry (%) 96 08/11/17 21:00 Constitutional: Yes: No Distress, Calm Eyes: Yes: Conjunctiva Clear HENT: Yes: Atraumatic Neck: Yes: Supple Cardiovascular: No: Regular Rate and Rhythm Respiratory: Yes: CTA Bilaterally Gastrointestinal: Yes: Soft. No: Distention, Tenderness Genitourinary: No: CVA Tenderness - Left, CVA Tenderness - Right Musculoskeletal: No: Joint Stiffness, Joint Swelling Extremities: No: Cold, Cool Edema: No Integumentary: No: Skin Tear, Other Neurological: Yes: WNL, Alert, Oriented ...Motor Strength: WNL Psychiatric: Yes: WNL, Alert, Oriented. No: Agitated, Suicidal Ideation Labs: CBC, BMP 08/11/17 00:13 08/11/17 00:13 INR, PTT INR 1.19 (0.82-1.09) H 08/11/17 00:13 - ....Imaging Other: Report Reviewed Assessment/Plan The patient is an 87 year old male with a significant past medical history of a- fib, hypothyroidism, HTN, HLD, pressure ulcer, and osteoarthritis who is arrived to the Emergency Department via EMS from [facility] s/p slip and fall found be be in acute rhabdomyolysis and anemic, also + troponins, and admitted for further w/u and treatment. IVF, watch for CHF f/u CE, echo admitted to telemetry cardio and GI f/u f/u labs aspiration, decubs, falls, DVT, gastric PFX dw pt and staff
[2017-08-12 07:38] LABS: BASO % 0.5 % (0-2.0); MCHC 31.6 g/dl (32.0-35.9); MEAN CELL VOLUME 72.7 fl (80-96); MEAN PLT VOLUME 7.1 fl (7.5-11.1); NEUT % 79.8 % (42.8-82.8); PLATELET COUNT 360 K/MM3 (134-434); RDW 19.6 % (11.9-15.9); WHITE BLOOD COUNT 8.4 K/mm3 (4.0-10.0)
[2017-08-12 08:04] LABS: ALBUMIN 2.2 g/dl (3.4-5.0); ANION GAP 16 (8-16); BILIRUBIN,TOTAL 0.3 mg/dL (0.2-1.0); CALCIUM 7.4 mg/dL (8.5-10.1); CO2 16 mmol/L (21-32); CREATININE 1.3 mg/dL (0.7-1.3); GLUCOSE,RANDOM 60 mg/dL (74-106); SGOT/AST 94 U/L (15-37); SGPT/ALT 29 U/L (12-78); TOT PROT 6.1 g/dl (6.4-8.2)
--- NOTE | 2017-08-12 08:09 | PN ---
Progress Note, Physician Chief Complaint: Pt A&Ox3; denies chest pain, shortness of breath. History of Present Illness: The patient is an 87 year old white male with a significant past medical history of a-fib, hypothyroidism, HTN, HLD, pressure ulcer, valvular heart disease, and osteoarthritis, who arrived to the Emergency Department via EMS [facility] s/p slip and fall this evening. The patient denies head trauma. He denies any complaints of pain at this time. He denies chest pain, shortness of breath, headache and dizziness. He denies fever, chills, nausea, vomit, diarrhea and constipation. He denies dysuria, frequency, urgency and hematuria. PCP: Dr. Lawrence Sales Process Manager: Dr. Oh - Current Medication List Current Medications: Active Medications Acetaminophen (Tylenol -) 650 mg PO Q6H PRN PRN Reason: PAIN Albuterol/Ipratropium (Duoneb -) 1 amp NEB Q6H PRN PRN Reason: SHORT OF BREATH/WHEEZING Ascorbic Acid (Vitamin C -) 500 mg PO DAILY [facility] Last Admin: 08/11/17 11:48 Dose: 500 mg Collagenase (Santyl -) 1 applic TP DAILY [facility] Dabigatran (Pradaxa -) 150 mg PO BID [facility] Last Admin: 08/11/17 22:34 Dose: 150 mg Diltiazem HCl (Cardizem Cd -) 240 mg PO DAILY [facility] Last Admin: 08/11/17 11:47 Dose: 240 mg Ferrous Sulfate (Feosol -) 325 mg PO TID [facility] Last Admin: 08/12/17 06:12 Dose: 325 mg Gentamicin Sulfate (Garamycin 0.1% Ointment -) 1 applic TP BID [facility] Last Admin: 08/12/17 01:15 Dose: Not Given Sodium Chloride (Normal Saline -) 1,000 mls @ 75 mls/hr IV ASDIR [facility] Last Admin: 08/11/17 20:52 Dose: 75 mls/hr Levothyroxine Sodium (Synthroid -) 37.5 mcg PO DAILY@0700 [facility] Last Admin: 08/12/17 06:12 Dose: 37.5 mcg Metoprolol Succinate (Toprol Xl -) 75 mg PO DAILY [facility] Last Admin: 08/11/17 11:48 Dose: 75 mg Multivit/Ca Carb/B Cmplx/FA/Prenat (Nephro-Kendal -) 1 tablet PO DAILY [facility] Multivitamins/Minerals/Vitamin C (Tab-A-Vit -) 1 tab PO DAILY [facility] Last Admin: 08/11/17 11:48 Dose: 1 tab Pantoprazole Sodium (Protonix -) 40 mg PO BID [facility] Last Admin: 08/11/17 21:03 Dose: 40 mg Ranitidine HCl (Zantac -) 150 mg PO BID [facility] Last Admin: 08/11/17 21:03 Dose: 150 mg Zinc Sulfate (Orazinc -) 220 mg PO DAILY [facility] Last Admin: 08/11/17 11:48 Dose: 220 mg - Objective Vital Signs: Vital Signs Temperature 97.9 F 08/12/17 06:00 Pulse Rate 66 08/12/17 06:00 Respiratory Rate 18 08/12/17 06:00 Blood Pressure 104/46 08/12/17 06:00 O2 Sat by Pulse Oximetry (%) 96 08/11/17 21:00 Constitutional: Yes: Calm, Thin Eyes: Yes: WNL HENT: Yes: WNL Neck: Yes: WNL Cardiovascular: Yes: Murmur (2/6 TACOS, RSB-->apex), S1, S2 Respiratory: Yes: Regular Gastrointestinal: Yes: Soft. No: Tenderness ...Rectal Exam: Yes: Deferred Genitourinary: No: Anuria Musculoskeletal: Yes: Muscle Weakness Extremities: Yes: Cool Edema: No Peripheral Pulses WNL: No Peripheral Pulses: Left Doralis Pedis: 1+, Right Dorsalis Pedis: 1+ Neurological: Yes: Alert, Oriented, Weakness Psychiatric: Yes: WNL Labs: CBC, BMP 08/12/17 06:25 INR, PTT INR 1.19 (0.82-1.09) H 08/11/17 00:13 Problem List - Problems (1) Sacral decubitus ulcer Code(s): L89.159 - PRESSURE ULCER OF SACRAL REGION, UNSPECIFIED STAGE (2) Diarrhea Code(s): R19.7 - DIARRHEA, UNSPECIFIED (3) Fall due to stumbling Assessment/Plan: no LE fracture; no acute intracranial pathology. Code(s): W01.0XXA - FALL SAME LEV FROM SLIP/TRIP W/O STRIKE AGAINST OBJECT, INIT (4) History of bleeding peptic ulcer Assessment/Plan: From a cardiac standpoint, there are no absolute contraindications for pt to undergo an EGD. Code(s): Z87.11 - PERSONAL HISTORY OF PEPTIC ULCER DISEASE (5) Anemia Assessment/Plan: Drop in Hb. F/u GI workup. Code(s): D64.9 - ANEMIA, UNSPECIFIED Qualifiers: Anemia type: iron deficiency Iron deficiency anemia type: chronic blood loss Qualified Code(s): D50.0 - Iron deficiency anemia secondary to blood loss (chronic) (6) Atrial fibrillation Assessment/Plan: On metoprolol and diltiazem for HR and BP control. Pradaxa held pending EGD. Code(s): I48.91 - UNSPECIFIED ATRIAL FIBRILLATION (7) CRF (chronic renal failure) Code(s): N18.9 - CHRONIC KIDNEY DISEASE, UNSPECIFIED (8) HTN (hypertension) Code(s): I10 - ESSENTIAL (PRIMARY) HYPERTENSION (9) Hypercholesteremia Code(s): E78.0 - PURE HYPERCHOLESTEROLEMIA * DO NOT USE * (10) Left ventricular diastolic dysfunction Code(s): I51.9 - HEART DISEASE, UNSPECIFIED (11) Weakness Code(s): R53.1 - WEAKNESS (12) Aortic stenosis Assessment/Plan: Systolic murmur suggestive of aortic stenosis (). Unable to assess accurately due to limited views of present ECHO; likely mild- moderate . Suggest repeat ECHO with attention to valve status. Code(s): I35.0 - NONRHEUMATIC AORTIC (VALVE) STENOSIS
[2017-08-12 08:16] LABS: ALK PHOS 61 U/L (45-117); TROPONIN I 0.13 ng/ml (0.00-0.05)
--- NOTE | 2017-08-12 08:22 | PN ---
Progress Note (short form) - Note Progress Note: Ortho Pt seen and examined, no complaints- denies any pain PE- WNL, nvi a/p NTD orthopedically stable d/w Dr. Rea
[2017-08-12 08:23] LABS: ANION GAP 13 (8-16); CALCIUM 7.2 mg/dL (8.5-10.1); CO2 17 mmol/L (21-32); CREATININE 1.3 mg/dL (0.7-1.3); GLUCOSE,RANDOM 63 mg/dL (74-106)
[2017-08-12 08:24] LABS: FERRITIN 44.709 ng/ml (16.4-293.9)
[2017-08-12] MEDS: COLLAGENASE CLOSTRIDIUM HIST. 30 GRAMS TUBE TP SCH ×2 (08:25→13:25)
[2017-08-12 08:46] LABS: CPK 3157 IU/L (39-308)
[2017-08-12] MEDS: METOPROLOL SUCCINATE 50 MG TAB.SR.24H (FP) PO SCH (10:10)
[2017-08-12] MEDS: PANTOPRAZOLE 40 MG TABLET (FP) PO SCH ×2 (10:10→21:06)
[2017-08-12] MEDS: RANITIDINE HCL 150 MG TABLET (FP) PO SCH ×2 (10:10→21:06)
[2017-08-12] MEDS: MULTIVITAMINS (DAILY MVI) TABLET (FP) PO SCH (10:10)
[2017-08-12] MEDS: ASCORBIC ACID 500 MG TABLET (FP) PO SCH (10:10)
[2017-08-12] MEDS: ZINC SULFATE 220 MG CAPSULE (FP) PO SCH (11:03)
[2017-08-12] MEDS: VITAMIN B COMP W-C 1 EA TABLET PO SCH (11:03)
[2017-08-12] MEDS: DABIGATRAN ETEXILATE MESYLATE 150 MG CAPSULE PO SCH ×2 (11:03→21:06)
[2017-08-12] MEDS: SODIUM CHLORIDE 1,000 ML IV SCH (11:04)
[2017-08-12] MEDS ORDERED: PT OWN MED DRAWER 7, Y5N ONE (21:01)
[2017-08-13] MEDS: LEVOTHYROXINE NA 25 MCG TABLET (FP) PO SCH (06:15)
[2017-08-13] MEDS: FERROUS SO4 325 MG TABLET (FP) PO SCH ×3 (06:15→21:06)
[2017-08-13] MEDS: SODIUM CHLORIDE 1,000 ML IV SCH (06:19)
[2017-08-13 08:04] LABS: BASO % 0.6 % (0-2.0); EOS % 0.1 % (0-4.5); MCH 24.2 pg (25.7-33.7); MCHC 32.9 g/dl (32.0-35.9); MEAN CELL VOLUME 73.6 fl (80-96); MEAN PLT VOLUME 7.4 fl (7.5-11.1); NEUT % 75.6 % (42.8-82.8); PLATELET COUNT 312 K/MM3 (134-434); RDW 19.1 % (11.9-15.9); WHITE BLOOD COUNT 6.1 K/mm3 (4.0-10.0)
[2017-08-13 08:07] LABS: SERUM IRON 13 ug/dL (38-169); TOTAL IRON BINDING CAPACITY 231 ug/dL (250-450); UIBC 218 ug/dL (111-343)
[2017-08-13 08:35] LABS: ANION GAP 10 (8-16); CALCIUM 7.4 mg/dL (8.5-10.1); CO2 18 mmol/L (21-32); CREATININE 1.2 mg/dL (0.7-1.3); GLUCOSE,RANDOM 73 mg/dL (74-106)
--- NOTE | 2017-08-13 10:14 | PN ---
Progress Note, Physician Chief Complaint: events noted dropped H&H might need GI EGD is on PPI - Current Medication List Current Medications: Active Medications Acetaminophen (Tylenol -) 650 mg PO Q6H PRN PRN Reason: PAIN Albuterol/Ipratropium (Duoneb -) 1 amp NEB Q6H PRN PRN Reason: SHORT OF BREATH/WHEEZING Ascorbic Acid (Vitamin C -) 500 mg PO DAILY [facility] Last Admin: 08/12/17 10:10 Dose: 500 mg Collagenase (Santyl -) 1 applic TP DAILY [facility] Last Admin: 08/12/17 13:25 Dose: Not Given Dabigatran (Pradaxa -) 150 mg PO BID [facility] Last Admin: 08/12/17 21:06 Dose: 150 mg Diltiazem HCl (Cardizem Cd -) 240 mg PO DAILY [facility] Last Admin: 08/12/17 10:10 Dose: 240 mg Ferrous Sulfate (Feosol -) 325 mg PO TID [facility] Last Admin: 08/13/17 06:15 Dose: 325 mg Gentamicin Sulfate (Garamycin 0.1% Ointment -) 1 applic TP BID [facility] Last Admin: 08/12/17 21:06 Dose: Not Given Levothyroxine Sodium (Synthroid -) 37.5 mcg PO DAILY@0700 [facility] Last Admin: 08/13/17 06:15 Dose: 37.5 mcg Metoprolol Succinate (Toprol Xl -) 75 mg PO DAILY [facility] Last Admin: 08/12/17 10:10 Dose: 75 mg Multivit/Ca Carb/B Cmplx/FA/Prenat (Nephro-Kendal -) 1 tablet PO DAILY [facility] Last Admin: 08/12/17 11:03 Dose: 1 tablet Multivitamins/Minerals/Vitamin C (Tab-A-Vit -) 1 tab PO DAILY [facility] Last Admin: 08/12/17 10:10 Dose: 1 tab Pantoprazole Sodium (Protonix -) 40 mg PO BID [facility] Last Admin: 08/12/17 21:06 Dose: 40 mg Ranitidine HCl (Zantac -) 150 mg PO BID [facility] Last Admin: 08/12/17 21:06 Dose: 150 mg Zinc Sulfate (Orazinc -) 220 mg PO DAILY [facility] Last Admin: 08/12/17 11:03 Dose: 220 mg - Objective Vital Signs: Vital Signs Temperature 98.3 F 08/13/17 06:00 Pulse Rate 60 08/13/17 06:00 Respiratory Rate 20 08/13/17 06:00 Blood Pressure 124/50 08/13/17 06:00 O2 Sat by Pulse Oximetry (%) 92 L 08/12/17 20:53 Constitutional: Yes: No Distress, Calm Eyes: Yes: Conjunctiva Clear HENT: Yes: Atraumatic Neck: Yes: Supple Cardiovascular: No: Regular Rate and Rhythm Respiratory: Yes: CTA Bilaterally Gastrointestinal: Yes: Soft. No: Distention, Tenderness Genitourinary: No: CVA Tenderness - Left, CVA Tenderness - Right Musculoskeletal: No: Joint Stiffness, Joint Swelling Extremities: No: Cold, Cool, Cyanosis Edema: No Integumentary: No: Skin Tear, Venous Stasis Changes Neurological: Yes: WNL, Alert, Oriented ...Motor Strength: WNL Psychiatric: Yes: WNL, Alert, Oriented. No: Agitated, Suicidal Ideation Labs: CBC, BMP 08/13/17 06:30 08/13/17 06:30 INR, PTT INR 1.19 (0.82-1.09) H 08/11/17 00:13 - ....Imaging Other: Report Reviewed Assessment/Plan The patient is an 87 year old male with a significant past medical history of a- fib, hypothyroidism, HTN, HLD, pressure ulcer, and osteoarthritis who is arrived to the Emergency Department via EMS from [facility] s/p slip and fall found be be in acute rhabdomyolysis and anemic, also + troponins, and admitted for further w/u and treatment. IVF, watch for CHF f/u CE, echo admitted to telemetry cardio and GI f/u; EGD/GI d/w cardiology cleared for EGD; hold AC 2 days preEGD f/u labs aspiration, decubs, falls, DVT, gastric PFX dw pt and staff
[2017-08-13] MEDS: MULTIVITAMINS (DAILY MVI) TABLET (FP) PO SCH (12:41)
[2017-08-13] MEDS: METOPROLOL SUCCINATE 50 MG TAB.SR.24H (FP) PO SCH (12:41)
[2017-08-13] MEDS: ASCORBIC ACID 500 MG TABLET (FP) PO SCH (12:41)
[2017-08-13] MEDS: VITAMIN B COMP W-C 1 EA TABLET PO SCH (12:42)
[2017-08-13] MEDS: ZINC SULFATE 220 MG CAPSULE (FP) PO SCH (12:42)
[2017-08-13] MEDS: COLLAGENASE CLOSTRIDIUM HIST. 30 GRAMS TUBE TP SCH (12:42)
[2017-08-13] MEDS: GENTAMICIN SO4 0.1% TOPICAL OINTMENT 15 GM/TUBE TUBE TP SCH ×2 (12:43→21:06)
[2017-08-13] MEDS: RANITIDINE HCL 150 MG TABLET (FP) PO SCH (12:44)
[2017-08-13] MEDS: DABIGATRAN ETEXILATE MESYLATE 150 MG CAPSULE PO SCH (12:44)
[2017-08-13] MEDS: PANTOPRAZOLE 40 MG TABLET (FP) PO SCH (12:44)
[2017-08-13] MEDS: MAG HYDROX/AL HYDROX/SIMETH 30 ML UNIT-DOSE CUP PO SCH ×3 (13:06→23:14)
[2017-08-13] MEDS: PANTOPRAZOLE SODIUM 80 MG in SODIUM CHLORIDE 100 ML IVPB SCH ×2 (13:28→21:06)
--- NOTE | 2017-08-13 16:39 | PN ---
GI Progress Note Subjective: GI Note: Informed by Dr Yuen of Hb drop. No overt bleeding reported but Ed did have occult blood when I consulted on him. His colonoscopy is recent ( 03/14 ) and does not need to be repeated. His EGD in 03/14 however did reveal a duodenal bulb ulcer with a visible vessel and Abhay ulcers in his hiatal hernia which may be recurring. I have therefore advised Ed to undergo a repeat EGD. I have discussed the potential for such risks as perforation and hemorrhage among others. He has granted an informed consent. I have stopped his Pradaxa and started a PPI drip. The EGD is scheduled for 08/16 but can be done emergently by Dr Garner who is covering this weekend. - Objective Vital Signs: Vital Signs Temperature 98.6 F 08/13/17 15:07 Pulse Rate 60 08/13/17 15:07 Respiratory Rate 20 08/13/17 15:07 Blood Pressure 108/43 08/13/17 15:07 O2 Sat by Pulse Oximetry (%) 92 L 08/12/17 20:53 Laboratory Tests 04/11/12 03/10/16 05/16/16 06:30 05:20 06:15 Hgb 11.3 L 7.4 L D 9.1 L 09/04/16 08/11/17 08/12/17 17:17 00:13 06:25 Hgb 9.9 L 8.3 L 7.7 L 08/13/17 06:30 Hgb 9.4 L D Constitutional: No Distress ...Auscultate: Yes: Normoactive Bowel Sounds ...Palpate: Yes: Soft, Other (nontender) Labs: CBC, BMP 08/13/17 06:30 08/13/17 06:30 INR, PTT INR 1.19 (0.82-1.09) H 08/11/17 00:13 Problem List - Problems (1) Diarrhea Assessment/Plan: Stool cultures , C diff toxin and stool for WBCs are negative. Given lack of melena continue to suspect that this diarrhea will prove to be paradoxical and due to fecal impaction and constipation. FUA reveals retained stool. Mylanta should help to mobilize this stool Code(s): R19.7 - DIARRHEA, UNSPECIFIED (2) Occult blood in stools Code(s): R19.5 - OTHER FECAL ABNORMALITIES (3) Diverticula of colon Code(s): K57.30 - DVRTCLOS OF LG INT W/O PERFORATION OR ABSCESS W/O BLEEDING (4) History of bleeding peptic ulcer Code(s): Z87.11 - PERSONAL HISTORY OF PEPTIC ULCER DISEASE (5) Anemia Assessment/Plan: Although his microcytic anemia suggests chronic GI losses as typically occur with small bowel vascular ectasias recurrent Abhay and duodenal bulb ulcers need to be excluded. Code(s): D64.9 - ANEMIA, UNSPECIFIED Qualifiers: Anemia type: iron deficiency Iron deficiency anemia type: chronic blood loss Qualified Code(s): D50.0 - Iron deficiency anemia secondary to blood loss (chronic)
--- NOTE | 2017-08-14 02:53 | PN ---
Progress Note, Physician Chief Complaint: Pt A&Ox3; denies chest pain, abdominal pain, shortness of breath. History of Present Illness: The patient is an 87 year old white male with a significant past medical history of a-fib, hypothyroidism, HTN, HLD, pressure ulcer, valvular heart disease, and osteoarthritis, who arrived to the Emergency Department [facility] s/p slip and fall this evening. The patient denies head trauma. He denies any complaints of pain at this time. He denies chest pain, shortness of breath, headache and dizziness. He denies fever, chills, nausea, vomit, diarrhea and constipation. He denies dysuria, frequency, urgency and hematuria. PCP: Dr. Lawrence Carbonizer Tester: Dr. Oh - Current Medication List Current Medications: Active Medications Acetaminophen (Tylenol -) 650 mg PO Q6H PRN PRN Reason: PAIN Al Hydroxide/Mg Hydroxide (Mylanta Oral Suspension -) 30 ml PO Q6HPO [facility] Last Admin: 08/13/17 23:14 Dose: Not Given Albuterol/Ipratropium (Duoneb -) 1 amp NEB Q6H PRN PRN Reason: SHORT OF BREATH/WHEEZING Ascorbic Acid (Vitamin C -) 500 mg PO DAILY [facility] Last Admin: 08/13/17 12:41 Dose: 500 mg Collagenase (Santyl -) 1 applic TP DAILY [facility] Last Admin: 08/13/17 12:42 Dose: Not Given Diltiazem HCl (Cardizem Cd -) 240 mg PO DAILY [facility] Last Admin: 08/13/17 12:43 Dose: 240 mg Ferrous Sulfate (Feosol -) 325 mg PO TID [facility] Last Admin: 08/13/17 21:06 Dose: 325 mg Gentamicin Sulfate (Garamycin 0.1% Ointment -) 1 applic TP BID [facility] Last Admin: 08/13/17 21:06 Dose: Not Given Pantoprazole Sodium 80 mg/ (Sodium Chloride) 100 mls @ 10 mls/hr IVPB Q10H [facility] PRN Reason: 8 MG/HR Last Admin: 08/13/17 21:06 Dose: 10 mls/hr Levothyroxine Sodium (Synthroid -) 37.5 mcg PO DAILY@0700 [facility] Last Admin: 08/13/17 06:15 Dose: 37.5 mcg Metoprolol Succinate (Toprol Xl -) 75 mg PO DAILY [facility] Last Admin: 08/13/17 12:41 Dose: 75 mg Multivit/Ca Carb/B Cmplx/FA/Prenat (Nephro-Kendal -) 1 tablet PO DAILY [facility] Last Admin: 08/13/17 12:42 Dose: 1 tablet Multivitamins/Minerals/Vitamin C (Tab-A-Vit -) 1 tab PO DAILY [facility] Last Admin: 08/13/17 12:41 Dose: 1 tab Zinc Sulfate (Orazinc -) 220 mg PO DAILY [facility] Last Admin: 08/13/17 12:42 Dose: 220 mg - Objective Vital Signs: Vital Signs Temperature 98.7 F 08/13/17 22:00 Pulse Rate 61 08/13/17 22:00 Respiratory Rate 20 08/13/17 22:00 Blood Pressure 112/39 08/13/17 22:00 O2 Sat by Pulse Oximetry (%) 95 08/13/17 21:00 Labs: CBC, BMP 08/13/17 06:30 08/13/17 06:30 INR, PTT INR 1.19 (0.82-1.09) H 08/11/17 00:13 Problem List - Problems (1) Sacral decubitus ulcer Code(s): L89.159 - PRESSURE ULCER OF SACRAL REGION, UNSPECIFIED STAGE (2) Diarrhea Code(s): R19.7 - DIARRHEA, UNSPECIFIED (3) Fall due to stumbling Assessment/Plan: no LE fracture; no acute intracranial pathology. Code(s): W01.0XXA - FALL SAME LEV FROM SLIP/TRIP W/O STRIKE AGAINST OBJECT, INIT (4) History of bleeding peptic ulcer Assessment/Plan: From a cardiac standpoint, there are no absolute contraindications for pt to undergo an EGD. Code(s): Z87.11 - PERSONAL HISTORY OF PEPTIC ULCER DISEASE (5) Anemia Assessment/Plan: Drop in Hb. F/u GI workup. Code(s): D64.9 - ANEMIA, UNSPECIFIED Qualifiers: Anemia type: iron deficiency Iron deficiency anemia type: chronic blood loss Qualified Code(s): D50.0 - Iron deficiency anemia secondary to blood loss (chronic) (6) Atrial fibrillation Assessment/Plan: On metoprolol and diltiazem for HR and BP control. Pradaxa held pending EGD. Code(s): I48.91 - UNSPECIFIED ATRIAL FIBRILLATION (7) CRF (chronic renal failure) Code(s): N18.9 - CHRONIC KIDNEY DISEASE, UNSPECIFIED (8) HTN (hypertension) Code(s): I10 - ESSENTIAL (PRIMARY) HYPERTENSION (9) Hypercholesteremia Code(s): E78.0 - PURE HYPERCHOLESTEROLEMIA * DO NOT USE * (10) Left ventricular diastolic dysfunction Code(s): I51.9 - HEART DISEASE, UNSPECIFIED (11) Weakness Code(s): R53.1 - WEAKNESS (12) Aortic stenosis Assessment/Plan: Systolic murmur suggestive of aortic stenosis (). Unable to assess valve accurately due to limited views of present ECHO; normal LVEF; likely mild-moderate . Suggest repeat ECHO with attention to valve status. Code(s): I35.0 - NONRHEUMATIC AORTIC (VALVE) STENOSIS (13) Hypothyroid Assessment/Plan: On levothyroxine. F/u TSH (elevated in 2016). Code(s): E03.9 - HYPOTHYROIDISM, UNSPECIFIED (14) Elevated CK Assessment/Plan: post-trauma (fall); CKMB not significantly changed. Mildly decreased GFR. Maintain hydration; f/u BUN/Cr, Is and Os. Code(s): R74.8 - ABNORMAL LEVELS OF OTHER SERUM ENZYMES
[2017-08-14] MEDS: MAG HYDROX/AL HYDROX/SIMETH 30 ML UNIT-DOSE CUP PO SCH ×4 (05:11→23:18)
[2017-08-14] MEDS: FERROUS SO4 325 MG TABLET (FP) PO SCH ×3 (05:11→21:37)
[2017-08-14] MEDS: LEVOTHYROXINE NA 25 MCG TABLET (FP) PO SCH (06:19)
[2017-08-14] MEDS: PANTOPRAZOLE SODIUM 80 MG in SODIUM CHLORIDE 100 ML IVPB SCH ×2 (06:39→18:01)
--- NOTE | 2017-08-14 07:13 | PN ---
Progress Note, Physician Chief Complaint: s/p 2 U PRBC stable Hg 9 no bleed - Current Medication List Current Medications: Active Medications Acetaminophen (Tylenol -) 650 mg PO Q6H PRN PRN Reason: PAIN Al Hydroxide/Mg Hydroxide (Mylanta Oral Suspension -) 30 ml PO Q6HPO [facility] Last Admin: 08/14/17 05:11 Dose: 30 ml Albuterol/Ipratropium (Duoneb -) 1 amp NEB Q6H PRN PRN Reason: SHORT OF BREATH/WHEEZING Ascorbic Acid (Vitamin C -) 500 mg PO DAILY [facility] Last Admin: 08/13/17 12:41 Dose: 500 mg Collagenase (Santyl -) 1 applic TP DAILY [facility] Last Admin: 08/13/17 12:42 Dose: Not Given Diltiazem HCl (Cardizem Cd -) 240 mg PO DAILY [facility] Last Admin: 08/13/17 12:43 Dose: 240 mg Ferrous Sulfate (Feosol -) 325 mg PO TID [facility] Last Admin: 08/14/17 05:11 Dose: 325 mg Gentamicin Sulfate (Garamycin 0.1% Ointment -) 1 applic TP BID [facility] Last Admin: 08/13/17 21:06 Dose: Not Given Pantoprazole Sodium 80 mg/ (Sodium Chloride) 100 mls @ 10 mls/hr IVPB Q10H [facility] PRN Reason: 8 MG/HR Last Admin: 08/14/17 06:39 Dose: Not Given Levothyroxine Sodium (Synthroid -) 37.5 mcg PO DAILY@0700 [facility] Last Admin: 08/14/17 06:19 Dose: 37.5 mcg Metoprolol Succinate (Toprol Xl -) 75 mg PO DAILY [facility] Last Admin: 08/13/17 12:41 Dose: 75 mg Multivit/Ca Carb/B Cmplx/FA/Prenat (Nephro-Kendal -) 1 tablet PO DAILY [facility] Last Admin: 08/13/17 12:42 Dose: 1 tablet Multivitamins/Minerals/Vitamin C (Tab-A-Vit -) 1 tab PO DAILY [facility] Last Admin: 08/13/17 12:41 Dose: 1 tab Zinc Sulfate (Orazinc -) 220 mg PO DAILY [facility] Last Admin: 08/13/17 12:42 Dose: 220 mg - Objective Vital Signs: Vital Signs Temperature 98.8 F 08/14/17 05:45 Pulse Rate 56 L 08/14/17 05:45 Respiratory Rate 20 08/14/17 05:45 Blood Pressure 118/78 08/14/17 05:45 O2 Sat by Pulse Oximetry (%) 95 08/13/17 21:00 Constitutional: Yes: No Distress, Calm Eyes: Yes: Conjunctiva Clear HENT: Yes: Atraumatic Neck: Yes: Supple Cardiovascular: No: Regular Rate and Rhythm Respiratory: Yes: CTA Bilaterally Gastrointestinal: Yes: Soft. No: Distention, Tenderness Genitourinary: No: CVA Tenderness - Left, CVA Tenderness - Right Musculoskeletal: No: Joint Stiffness, Joint Swelling Extremities: No: Cold, Cool Edema: No Integumentary: No: Rash, Venous Stasis Changes Neurological: Yes: WNL, Alert, Oriented ...Motor Strength: WNL Psychiatric: Yes: WNL, Alert, Oriented. No: Agitated, Suicidal Ideation Labs: CBC, BMP 08/13/17 06:30 08/13/17 06:30 INR, PTT INR 1.19 (0.82-1.09) H 08/11/17 00:13 - ....Imaging Other: Report Reviewed Assessment/Plan The patient is an 87 year old male with a significant past medical history of a- fib, hypothyroidism, HTN, HLD, pressure ulcer, and osteoarthritis who is arrived to the Emergency Department via EMS from [place] s/p slip and fall found be be in acute rhabdomyolysis and anemic, also + troponins, and admitted for further w/u and treatment. f/u in telemetry cardio and GI f/u; EGD/GI d/w cardiology cleared for EGD; hold AC 2 days preEGD f/u labs aspiration, decubs, falls, DVT, gastric PFX dw pt and staff
[2017-08-14 08:35] LABS: BASO % 0.6 % (0-2.0); EOS % 0.2 % (0-4.5); MCH 24.2 pg (25.7-33.7); MCHC 32.7 g/dl (32.0-35.9); MEAN CELL VOLUME 74.1 fl (80-96); MEAN PLT VOLUME 7.4 fl (7.5-11.1); NEUT % 69.4 % (42.8-82.8); PLATELET COUNT 314 K/MM3 (134-434); RDW 19.7 % (11.9-15.9); WHITE BLOOD COUNT 5.4 K/mm3 (4.0-10.0)
[2017-08-14 09:02] LABS: ANION GAP 11 (8-16); CALCIUM 7.6 mg/dL (8.5-10.1); CO2 20 mmol/L (21-32); CREATININE 1.1 mg/dL (0.7-1.3); GLUCOSE,RANDOM 66 mg/dL (74-106)
[2017-08-14 09:19] LABS: CPK 1413 IU/L (39-308)
[2017-08-14] MEDS ORDERED: PT OWN MED DRAWER 7, Y5N ONE ×3 (10:01→17:19)
[2017-08-14] MEDS: MULTIVITAMINS (DAILY MVI) TABLET (FP) PO SCH (10:08)
[2017-08-14] MEDS: VITAMIN B COMP W-C 1 EA TABLET PO SCH (10:08)
[2017-08-14] MEDS: METOPROLOL SUCCINATE 50 MG TAB.SR.24H (FP) PO SCH (10:08)
[2017-08-14] MEDS: ZINC SULFATE 220 MG CAPSULE (FP) PO SCH (10:08)
[2017-08-14] MEDS: ASCORBIC ACID 500 MG TABLET (FP) PO SCH (10:08)
[2017-08-14] MEDS: GENTAMICIN SO4 0.1% TOPICAL OINTMENT 15 GM/TUBE TUBE TP SCH ×2 (10:09→21:37)
[2017-08-14] MEDS: COLLAGENASE CLOSTRIDIUM HIST. 30 GRAMS TUBE TP SCH (10:09)
--- NOTE | 2017-08-14 10:22 | PN ---
Progress Note, Physician History of Present Illness: seen and examined today in nad. no new complaints. no overnight events. - Current Medication List Current Medications: Active Medications Acetaminophen (Tylenol -) 650 mg PO Q6H PRN PRN Reason: PAIN Al Hydroxide/Mg Hydroxide (Mylanta Oral Suspension -) 30 ml PO Q6HPO [facility] Last Admin: 08/14/17 05:11 Dose: 30 ml Albuterol/Ipratropium (Duoneb -) 1 amp NEB Q6H PRN PRN Reason: SHORT OF BREATH/WHEEZING Ascorbic Acid (Vitamin C -) 500 mg PO DAILY [facility] Last Admin: 08/14/17 10:08 Dose: 500 mg Collagenase (Santyl -) 1 applic TP DAILY [facility] Last Admin: 08/14/17 10:09 Dose: Not Given Diltiazem HCl (Cardizem Cd -) 240 mg PO DAILY [facility] Last Admin: 08/14/17 10:08 Dose: 240 mg Ferrous Sulfate (Feosol -) 325 mg PO TID [facility] Last Admin: 08/14/17 05:11 Dose: 325 mg Gentamicin Sulfate (Garamycin 0.1% Ointment -) 1 applic TP BID [facility] Last Admin: 08/14/17 10:09 Dose: Not Given Pantoprazole Sodium 80 mg/ (Sodium Chloride) 100 mls @ 10 mls/hr IVPB Q10H [facility] PRN Reason: 8 MG/HR Last Admin: 08/14/17 06:39 Dose: Not Given Levothyroxine Sodium (Synthroid -) 37.5 mcg PO DAILY@0700 [facility] Last Admin: 08/14/17 06:19 Dose: 37.5 mcg Metoprolol Succinate (Toprol Xl -) 75 mg PO DAILY [facility] Last Admin: 08/14/17 10:08 Dose: 75 mg Multivit/Ca Carb/B Cmplx/FA/Prenat (Nephro-Kendal -) 1 tablet PO DAILY [facility] Last Admin: 08/14/17 10:08 Dose: 1 tablet Multivitamins/Minerals/Vitamin C (Tab-A-Vit -) 1 tab PO DAILY [facility] Last Admin: 08/14/17 10:08 Dose: 1 tab Zinc Sulfate (Orazinc -) 220 mg PO DAILY [facility] Last Admin: 08/14/17 10:08 Dose: 220 mg - Objective Vital Signs: Vital Signs Temperature 98.8 F 08/14/17 05:45 Pulse Rate 56 L 08/14/17 05:45 Respiratory Rate 20 08/14/17 05:45 Blood Pressure 118/78 08/14/17 05:45 O2 Sat by Pulse Oximetry (%) 95 08/13/17 21:00 Constitutional: Yes: No Distress, Calm Eyes: Yes: Conjunctiva Clear, EOM Intact, PERRL HENT: Yes: Atraumatic, Normocephalic Neck: Yes: Supple, Trachea Midline Cardiovascular: Yes: Pulse Irregular, Murmur, S1, S2. No: Regular Rate and Rhythm, Bradycardia, Tachycardia, Bruit, JVD, Gallop, Rub, S3, S4, Varicosities Respiratory: Yes: Regular, CTA Bilaterally. No: Rales, Rhonchi, Wheezes Gastrointestinal: Yes: Normal Bowel Sounds, Soft. No: Distention, Tenderness ...Rectal Exam: Yes: WNL Genitourinary: Yes: WNL Extremities: Yes: WNL Edema: No Peripheral Pulses WNL: No Peripheral Pulses: Left Doralis Pedis: 2+, Right Dorsalis Pedis: 2+ Integumentary: Yes: WNL Neurological: Yes: Alert, Oriented Psychiatric: Yes: Alert, Oriented Labs: CBC, BMP 08/14/17 07:30 08/14/17 07:30 INR, PTT INR 1.19 (0.82-1.09) H 08/11/17 00:13 - ....Imaging Chest X-ray: Report Reviewed, Image Reviewed EKG: Report Reviewed, Image Reviewed Other: Report Reviewed, Image Reviewed (tele-nsr, apcs) Assessment/Plan 87 year old man h/o a-fib, hypothyroidism, HTN, HLD, pressure ulcer, valvular heart disease, and osteoarthritis, admitted with slip and fall. Atrial fibrillation -HR adequately controlled -cont metoprolol and diltiazem for HR and BP control. -Pradaxa held pending EGD. HTN (hypertension)-well controlled -cont current medical regimen Chronic diastolic CHF-Left ventricular diastolic dysfunction -euvolemic -does not require diuresis at this time Aortic stenosis-S2 preserved -Systolic murmur suggestive of aortic stenosis (). -Unable to assess valve accurately due to limited views of present ECHO; normal LVEF; likely mild-moderate . - repeat ECHO with attention to valve status.
[2017-08-15] MEDS: PANTOPRAZOLE SODIUM 80 MG in SODIUM CHLORIDE 100 ML IVPB SCH ×3 (04:41→22:41)
[2017-08-15] MEDS: FERROUS SO4 325 MG TABLET (FP) PO SCH ×3 (05:12→22:41)
[2017-08-15] MEDS: MAG HYDROX/AL HYDROX/SIMETH 30 ML UNIT-DOSE CUP PO SCH ×3 (05:13→17:02)
[2017-08-15] MEDS: LEVOTHYROXINE NA 25 MCG TABLET (FP) PO SCH (06:04)
[2017-08-15 08:09] LABS: BASO % 0.7 % (0-2.0); EOS % 0.3 % (0-4.5); MCH 24.4 pg (25.7-33.7); MCHC 32.9 g/dl (32.0-35.9); MEAN CELL VOLUME 74.1 fl (80-96); MEAN PLT VOLUME 7.3 fl (7.5-11.1); NEUT % 69.1 % (42.8-82.8); PLATELET COUNT 307 K/MM3 (134-434); RDW 19.9 % (11.9-15.9); WHITE BLOOD COUNT 5.4 K/mm3 (4.0-10.0)
[2017-08-15 08:31] LABS: ALBUMIN 2.1 g/dl (3.4-5.0); ANION GAP 8 (8-16); BILIRUBIN,TOTAL 0.4 mg/dL (0.2-1.0); CALCIUM 7.4 mg/dL (8.5-10.1); CO2 22 mmol/L (21-32); GLUCOSE,RANDOM 83 mg/dL (74-106); SGOT/AST 56 U/L (15-37); SGPT/ALT 27 U/L (12-78); TOT PROT 5.7 g/dl (6.4-8.2)
[2017-08-15 08:32] LABS: ALK PHOS 59 U/L (45-117); CPK 951 IU/L (39-308)
--- NOTE | 2017-08-15 10:40 | PN ---
Progress Note, Physician History of Present Illness: no overnight events. - Current Medication List Current Medications: Active Medications Acetaminophen (Tylenol -) 650 mg PO Q6H PRN PRN Reason: PAIN Al Hydroxide/Mg Hydroxide (Mylanta Oral Suspension -) 30 ml PO Q6HPO [facility] Last Admin: 08/15/17 05:13 Dose: 30 ml Albuterol/Ipratropium (Duoneb -) 1 amp NEB Q6H PRN PRN Reason: SHORT OF BREATH/WHEEZING Ascorbic Acid (Vitamin C -) 500 mg PO DAILY [facility] Last Admin: 08/14/17 10:08 Dose: 500 mg Collagenase (Santyl -) 1 applic TP DAILY [facility] Last Admin: 08/14/17 10:09 Dose: Not Given Diltiazem HCl (Cardizem Cd -) 240 mg PO DAILY [facility] Last Admin: 08/14/17 10:08 Dose: 240 mg Ferrous Sulfate (Feosol -) 325 mg PO TID [facility] Last Admin: 08/15/17 05:12 Dose: 325 mg Gentamicin Sulfate (Garamycin 0.1% Ointment -) 1 applic TP BID [facility] Last Admin: 08/14/17 21:37 Dose: Not Given Pantoprazole Sodium 80 mg/ (Sodium Chloride) 100 mls @ 10 mls/hr IVPB Q10H [facility] PRN Reason: 8 MG/HR Last Admin: 08/15/17 04:41 Dose: 10 mls/hr Levothyroxine Sodium (Synthroid -) 37.5 mcg PO DAILY@0700 [facility] Last Admin: 08/15/17 06:04 Dose: 37.5 mcg Metoprolol Succinate (Toprol Xl -) 75 mg PO DAILY [facility] Last Admin: 08/14/17 10:08 Dose: 75 mg Multivit/Ca Carb/B Cmplx/FA/Prenat (Nephro-Kendal -) 1 tablet PO DAILY [facility] Last Admin: 08/14/17 10:08 Dose: 1 tablet Multivitamins/Minerals/Vitamin C (Tab-A-Vit -) 1 tab PO DAILY [facility] Last Admin: 08/14/17 10:08 Dose: 1 tab Zinc Sulfate (Orazinc -) 220 mg PO DAILY [facility] Last Admin: 08/14/17 10:08 Dose: 220 mg - Objective Vital Signs: Vital Signs Temperature 98.2 F 08/15/17 06:00 Pulse Rate 57 L 08/15/17 06:00 Respiratory Rate 20 08/15/17 09:06 Blood Pressure 114/57 08/15/17 06:00 O2 Sat by Pulse Oximetry (%) 94 L 08/15/17 09:06 Constitutional: Yes: No Distress, Calm Cardiovascular: Yes: Regular Rate and Rhythm, S1, S2. No: Bradycardia, Tachycardia, Pulse Irregular, Bruit, JVD, Gallop, Murmur, Rub, S3, S4, Varicosities Respiratory: Yes: Regular, CTA Bilaterally. No: Rales, Rhonchi, Wheezes Gastrointestinal: Yes: Normal Bowel Sounds, Soft. No: Distention, Tenderness Edema: No Peripheral Pulses WNL: Yes Peripheral Pulses: Left Doralis Pedis: 2+, Right Dorsalis Pedis: 2+ Neurological: Yes: Alert, Oriented Psychiatric: Yes: Alert, Oriented Labs: CBC, BMP 08/15/17 07:45 08/15/17 07:45 INR, PTT INR 1.19 (0.82-1.09) H 08/11/17 00:13 - ....Imaging Chest X-ray: Report Reviewed, Image Reviewed EKG: Report Reviewed, Image Reviewed Other: Report Reviewed, Image Reviewed (tele-NSR, frequent APCs, no longer on telemetry) Assessment/Plan 87 year old man h/o a-fib, hypothyroidism, HTN, HLD, pressure ulcer, valvular heart disease, and osteoarthritis, admitted with slip and fall. Atrial fibrillation -HR adequately controlled, not currently on tele -cont metoprolol and diltiazem for HR and BP control. -Pradaxa held pending EGD. HTN (hypertension)-well controlled -cont current medical regimen Chronic diastolic CHF-Left ventricular diastolic dysfunction -euvolemic -does not require diuresis at this time Aortic stenosis-S2 preserved -Systolic murmur suggestive of aortic stenosis (). -Unable to assess valve accurately due to limited views of present ECHO; normal LVEF; likely mild-moderate . -repeat ECHO with attention to valve status.
[2017-08-15] MEDS ORDERED: PT OWN MED DRAWER 7, Y5N ONE ×2 (10:43→13:53)
[2017-08-15] MEDS: METOPROLOL SUCCINATE 50 MG TAB.SR.24H (FP) PO SCH (10:46)
[2017-08-15] MEDS: ZINC SULFATE 220 MG CAPSULE (FP) PO SCH (10:47)
[2017-08-15] MEDS: MULTIVITAMINS (DAILY MVI) TABLET (FP) PO SCH (10:47)
[2017-08-15] MEDS: GENTAMICIN SO4 0.1% TOPICAL OINTMENT 15 GM/TUBE TUBE TP SCH (10:47)
[2017-08-15] MEDS: ASCORBIC ACID 500 MG TABLET (FP) PO SCH (10:47)
[2017-08-15] MEDS: VITAMIN B COMP W-C 1 EA TABLET PO SCH (10:47)
[2017-08-15] MEDS: COLLAGENASE CLOSTRIDIUM HIST. 30 GRAMS TUBE TP SCH (10:48)
--- NOTE | 2017-08-15 14:36 | PN ---
Progress Note, Physician Chief Complaint: in bed awake alert NAD VSS H&H stable - Current Medication List Current Medications: Active Medications Acetaminophen (Tylenol -) 650 mg PO Q6H PRN PRN Reason: PAIN Al Hydroxide/Mg Hydroxide (Mylanta Oral Suspension -) 30 ml PO Q6HPO [facility] Last Admin: 08/15/17 12:54 Dose: 30 ml Albuterol/Ipratropium (Duoneb -) 1 amp NEB Q6H PRN PRN Reason: SHORT OF BREATH/WHEEZING Ascorbic Acid (Vitamin C -) 500 mg PO DAILY [facility] Last Admin: 08/15/17 10:47 Dose: 500 mg Collagenase (Santyl -) 1 applic TP DAILY [facility] Last Admin: 08/15/17 10:48 Dose: Not Given Diltiazem HCl (Cardizem Cd -) 240 mg PO DAILY [facility] Last Admin: 08/15/17 10:47 Dose: 240 mg Ferrous Sulfate (Feosol -) 325 mg PO TID [facility] Last Admin: 08/15/17 13:58 Dose: 325 mg Gentamicin Sulfate (Garamycin 0.1% Ointment -) 1 applic TP BID [facility] Last Admin: 08/15/17 10:47 Dose: Not Given Pantoprazole Sodium 80 mg/ (Sodium Chloride) 100 mls @ 10 mls/hr IVPB Q10H [facility] PRN Reason: 8 MG/HR Last Admin: 08/15/17 13:57 Dose: 10 mls/hr Levothyroxine Sodium (Synthroid -) 37.5 mcg PO DAILY@0700 [facility] Last Admin: 08/15/17 06:04 Dose: 37.5 mcg Metoprolol Succinate (Toprol Xl -) 75 mg PO DAILY [facility] Last Admin: 08/15/17 10:46 Dose: 75 mg Multivit/Ca Carb/B Cmplx/FA/Prenat (Nephro-Kendal -) 1 tablet PO DAILY [facility] Last Admin: 08/15/17 10:47 Dose: 1 tablet Multivitamins/Minerals/Vitamin C (Tab-A-Vit -) 1 tab PO DAILY [facility] Last Admin: 08/15/17 10:47 Dose: 1 tab Zinc Sulfate (Orazinc -) 220 mg PO DAILY [facility] Last Admin: 08/15/17 10:47 Dose: 220 mg - Objective Vital Signs: Vital Signs Temperature 98.3 F 08/15/17 10:00 Pulse Rate 54 L 08/15/17 11:54 Respiratory Rate 20 08/15/17 10:00 Blood Pressure 129/56 08/15/17 10:00 O2 Sat by Pulse Oximetry (%) 95 08/15/17 11:54 Constitutional: Yes: No Distress, Calm Eyes: Yes: Conjunctiva Clear HENT: Yes: Atraumatic Neck: Yes: Supple Cardiovascular: No: Regular Rate and Rhythm Respiratory: Yes: CTA Bilaterally Gastrointestinal: Yes: Soft. No: Distention, Tenderness Genitourinary: No: CVA Tenderness - Left, CVA Tenderness - Right Musculoskeletal: No: Joint Stiffness, Joint Swelling Extremities: No: Cold, Cool Edema: No Integumentary: No: Rash, Venous Stasis Changes Neurological: Yes: WNL, Alert, Oriented ...Motor Strength: WNL Psychiatric: Yes: WNL, Alert, Oriented. No: Agitated, Suicidal Ideation Labs: CBC, BMP 08/15/17 07:45 08/15/17 07:45 INR, PTT INR 1.19 (0.82-1.09) H 08/11/17 00:13 - ....Imaging Other: Report Reviewed Assessment/Plan The patient is an 87 year old male with a significant past medical history of a- fib, hypothyroidism, HTN, HLD, pressure ulcer, and osteoarthritis who is arrived to the Emergency Department via EMS from [facility] s/p slip and fall found be be in acute rhabdomyolysis and anemic, also + troponins, and admitted for further w/u and treatment. f/u in telemetry cardio and GI f/u; EGD/GI in am cleared for EGD; AC held 2 days preEGD f/u labs aspiration, decubs, falls, DVT, gastric PFX dw pt and staff
[2017-08-16] MEDS: MAG HYDROX/AL HYDROX/SIMETH 30 ML UNIT-DOSE CUP PO SCH ×4 (00:55→17:27)
[2017-08-16] MEDS: FERROUS SO4 325 MG TABLET (FP) PO SCH ×2 (06:17→15:09)
[2017-08-16] MEDS: LEVOTHYROXINE NA 25 MCG TABLET (FP) PO SCH (06:35)
[2017-08-16] MEDS ORDERED: PT OWN MED DRAWER 7, Y5N ONE (09:07)
[2017-08-16] MEDS: METOPROLOL SUCCINATE 50 MG TAB.SR.24H (FP) PO SCH (09:09)
[2017-08-16] MEDS: MULTIVITAMINS (DAILY MVI) TABLET (FP) PO SCH (09:10)
[2017-08-16] MEDS: ASCORBIC ACID 500 MG TABLET (FP) PO SCH (09:10)
[2017-08-16] MEDS: VITAMIN B COMP W-C 1 EA TABLET PO SCH (09:11)
[2017-08-16] MEDS: ZINC SULFATE 220 MG CAPSULE (FP) PO SCH (09:11)
[2017-08-16] MEDS: PANTOPRAZOLE SODIUM 80 MG in SODIUM CHLORIDE 100 ML IVPB SCH (09:12)
[2017-08-16] MEDS ORDERED: PROPOFOL 20 ML ONE ×2 (09:35)
--- NOTE | 2017-08-16 10:01 | PN ---
Progress Note, Physician Chief Complaint: in bed awake alert NAD VSS no bleed no new c/o awaiting EGD - Current Medication List Current Medications: Active Medications Acetaminophen (Tylenol -) 650 mg PO Q6H PRN PRN Reason: PAIN Al Hydroxide/Mg Hydroxide (Mylanta Oral Suspension -) 30 ml PO Q6HPO [facility] Last Admin: 08/16/17 06:17 Dose: Not Given Albuterol/Ipratropium (Duoneb -) 1 amp NEB Q6H PRN PRN Reason: SHORT OF BREATH/WHEEZING Ascorbic Acid (Vitamin C -) 500 mg PO DAILY [facility] Last Admin: 08/16/17 09:10 Dose: 500 mg Diltiazem HCl (Cardizem Cd -) 240 mg PO DAILY [facility] Last Admin: 08/16/17 09:10 Dose: 240 mg Ferrous Sulfate (Feosol -) 325 mg PO TID [facility] Last Admin: 08/16/17 06:17 Dose: Not Given Pantoprazole Sodium 80 mg/ (Sodium Chloride) 100 mls @ 10 mls/hr IVPB Q10H [facility] PRN Reason: 8 MG/HR Last Admin: 08/16/17 09:12 Dose: Not Given Levothyroxine Sodium (Synthroid -) 37.5 mcg PO DAILY@0700 [facility] Last Admin: 08/16/17 06:35 Dose: Not Given Metoprolol Succinate (Toprol Xl -) 75 mg PO DAILY [facility] Last Admin: 08/16/17 09:09 Dose: 75 mg Multivit/Ca Carb/B Cmplx/FA/Prenat (Nephro-Kendal -) 1 tablet PO DAILY [facility] Last Admin: 08/16/17 09:11 Dose: 1 tablet Multivitamins/Minerals/Vitamin C (Tab-A-Vit -) 1 tab PO DAILY [facility] Last Admin: 08/16/17 09:10 Dose: 1 tab Zinc Sulfate (Orazinc -) 220 mg PO DAILY [facility] Last Admin: 08/16/17 09:11 Dose: 220 mg - Objective Vital Signs: Vital Signs Temperature 98.5 F 08/16/17 06:32 Pulse Rate 58 L 08/16/17 06:32 Respiratory Rate 20 08/16/17 06:32 Blood Pressure 125/53 08/16/17 06:32 O2 Sat by Pulse Oximetry (%) 95 08/15/17 21:00 Constitutional: Yes: No Distress, Calm Eyes: Yes: Conjunctiva Clear HENT: Yes: Atraumatic Neck: Yes: Supple Cardiovascular: No: Regular Rate and Rhythm Respiratory: Yes: CTA Bilaterally Gastrointestinal: Yes: Soft. No: Distention Genitourinary: No: Hematuria Musculoskeletal: No: Joint Stiffness, Joint Swelling Extremities: No: Cold, Cool Edema: No Integumentary: No: Rash, Venous Stasis Changes Neurological: Yes: WNL, Alert, Oriented ...Motor Strength: WNL Psychiatric: Yes: WNL, Alert, Oriented. No: Agitated, Suicidal Ideation Labs: CBC, BMP 08/15/17 07:45 08/15/17 07:45 INR, PTT INR 1.19 (0.82-1.09) H 08/11/17 00:13 - ....Imaging Other: Report Reviewed Assessment/Plan The patient is an 87 year old male with a significant past medical history of a- fib, hypothyroidism, HTN, HLD, pressure ulcer, and osteoarthritis who is arrived to the Emergency Department [facility] s/p slip and fall found be be in acute rhabdomyolysis and anemic, also + troponins, and admitted for further w/u and treatment. f/u in telemetry cardio and GI f/u; EGD today cleared for EGD; AC held 2 days preEGD f/u labs aspiration, decubs, falls, DVT, gastric PFX dw pt and staff
[2017-08-16] MEDS ORDERED: ePHEDrine SULFATE 50 MG/1 ML AMPULE ONE (11:03)
--- NOTE | 2017-08-16 11:36 | PN ---
Progress Note (short form) - Note Progress Note: EGD complete. Report left in procedural section opf physical chart and to be scanned into Div[employer]
--- NOTE | 2017-08-16 12:57 | PN ---
Progress Note, Physician History of Present Illness: The patient is an 87 year old male with a significant past medical history of a- fib, hypothyroidism, HTN, HLD, pressure ulcer, and osteoarthritis who is arrived to the Emergency Department via EMS from [facility] s/p slip and fall this evening. The patient denies head trauma. He denies any complaints of pain at this time. - Current Medication List Current Medications: Active Medications Acetaminophen (Tylenol -) 650 mg PO Q6H PRN PRN Reason: PAIN Al Hydroxide/Mg Hydroxide (Mylanta Oral Suspension -) 30 ml PO Q6HPO [facility] Last Admin: 08/16/17 12:55 Dose: Not Given Albuterol/Ipratropium (Duoneb -) 1 amp NEB Q6H PRN PRN Reason: SHORT OF BREATH/WHEEZING Ascorbic Acid (Vitamin C -) 500 mg PO DAILY [facility] Last Admin: 08/16/17 09:10 Dose: 500 mg Diltiazem HCl (Cardizem Cd -) 240 mg PO DAILY [facility] Last Admin: 08/16/17 09:10 Dose: 240 mg Ferrous Sulfate (Feosol -) 325 mg PO TID [facility] Last Admin: 08/16/17 06:17 Dose: Not Given Levothyroxine Sodium (Synthroid -) 37.5 mcg PO DAILY@0700 [facility] Last Admin: 08/16/17 06:35 Dose: Not Given Metoprolol Succinate (Toprol Xl -) 75 mg PO DAILY [facility] Last Admin: 08/16/17 09:09 Dose: 75 mg Multivit/Ca Carb/B Cmplx/FA/Prenat (Nephro-Kendal -) 1 tablet PO DAILY [facility] Last Admin: 08/16/17 09:11 Dose: 1 tablet Multivitamins/Minerals/Vitamin C (Tab-A-Vit -) 1 tab PO DAILY [facility] Last Admin: 08/16/17 09:10 Dose: 1 tab Pantoprazole Sodium (Protonix -) 40 mg PO DAILY [facility] Zinc Sulfate (Orazinc -) 220 mg PO DAILY [facility] Last Admin: 08/16/17 09:11 Dose: 220 mg - Objective Vital Signs: Vital Signs Temperature 97.2 F L 08/16/17 12:05 Pulse Rate 63 08/16/17 12:05 Respiratory Rate 20 08/16/17 12:05 Blood Pressure 126/77 08/16/17 12:05 O2 Sat by Pulse Oximetry (%) 97 08/16/17 12:05 Eyes: Yes: WNL, Conjunctiva Clear, EOM Intact HENT: Yes: WNL, Atraumatic, Normocephalic Neck: Yes: WNL, Supple, Trachea Midline Cardiovascular: Yes: Pulse Irregular, S1, S2 Respiratory: Yes: WNL, Regular, CTA Bilaterally Gastrointestinal: Yes: WNL, Normal Bowel Sounds Genitourinary: Yes: WNL Musculoskeletal: Yes: WNL Extremities: Yes: WNL Edema: No Integumentary: Yes: WNL Neurological: Yes: WNL, Alert, Oriented ...Motor Strength: WNL Psychiatric: Yes: WNL Labs: CBC, BMP 08/15/17 07:45 08/15/17 07:45 INR, PTT INR 1.19 (0.82-1.09) H 08/11/17 00:13 Problem List - Problems (1) Diarrhea Code(s): R19.7 - DIARRHEA, UNSPECIFIED (2) Diverticula of colon Code(s): K57.30 - DVRTCLOS OF LG INT W/O PERFORATION OR ABSCESS W/O BLEEDING (3) Fall due to stumbling Code(s): W01.0XXA - FALL SAME LEV FROM SLIP/TRIP W/O STRIKE AGAINST OBJECT, INIT (4) History of bleeding peptic ulcer Code(s): Z87.11 - PERSONAL HISTORY OF PEPTIC ULCER DISEASE (5) NSTEMI (non-ST elevated myocardial infarction) Code(s): I21.4 - NON-ST ELEVATION (NSTEMI) MYOCARDIAL INFARCTION (6) Occult blood in stools Code(s): R19.5 - OTHER FECAL ABNORMALITIES (7) Rhabdomyolysis Code(s): M62.82 - RHABDOMYOLYSIS (8) Anemia Code(s): D64.9 - ANEMIA, UNSPECIFIED Qualifiers: Anemia type: iron deficiency Iron deficiency anemia type: chronic blood loss Qualified Code(s): D50.0 - Iron deficiency anemia secondary to blood loss (chronic) (9) Atrial fibrillation Code(s): I48.91 - UNSPECIFIED ATRIAL FIBRILLATION (10) Atrial flutter with rapid ventricular response Code(s): I48.92 - UNSPECIFIED ATRIAL FLUTTER (11) Bacteremia Code(s): R78.81 - BACTEREMIA (12) CHF (congestive heart failure) Code(s): I50.9 - HEART FAILURE, UNSPECIFIED (13) COPD (chronic obstructive pulmonary disease) Code(s): J44.9 - CHRONIC OBSTRUCTIVE PULMONARY DISEASE, UNSPECIFIED (14) CRF (chronic renal failure) Code(s): N18.9 - CHRONIC KIDNEY DISEASE, UNSPECIFIED (15) Decubitus ulcer of sacral area Code(s): L89.159 - PRESSURE ULCER OF SACRAL REGION, UNSPECIFIED STAGE Qualifiers: Pressure ulcer stage: unstageable Qualified Code(s): L89.150 - Pressure ulcer of sacral region, unstageable (16) Dehydration Code(s): E86.0 - DEHYDRATION (17) Dehydration, mild Code(s): E86.0 - DEHYDRATION (18) GI bleeding Code(s): K92.2 - GASTROINTESTINAL HEMORRHAGE, UNSPECIFIED (19) Gram-positive bacteremia Code(s): A49.9 - BACTERIAL INFECTION, UNSPECIFIED (20) HTN (hypertension) Code(s): I10 - ESSENTIAL (PRIMARY) HYPERTENSION (21) Hypercholesteremia Code(s): E78.0 - PURE HYPERCHOLESTEROLEMIA * DO NOT USE * (22) Influenza B Code(s): J10.1 - FLU DUE TO OTH IDENT INFLUENZA VIRUS W OTH RESP MANIFEST (23) Left ventricular diastolic dysfunction Code(s): I51.9 - HEART DISEASE, UNSPECIFIED (24) Leukocytosis Code(s): D72.829 - ELEVATED WHITE BLOOD CELL COUNT, UNSPECIFIED (25) Pleural effusion Code(s): J90 - PLEURAL EFFUSION, NOT ELSEWHERE CLASSIFIED (26) Pneumonia Code(s): J18.9 - PNEUMONIA, UNSPECIFIED ORGANISM Qualifiers: Pneumonia type: due to unspecified organism Laterality: bilateral Lung location: unspecified part of lung Qualified Code(s): J18.9 - Pneumonia, unspecified organism (27) Pneumonia as manifestation of parasitic disease Code(s): J18.9 - PNEUMONIA, UNSPECIFIED ORGANISM; B89 - UNSPECIFIED PARASITIC DISEASE (28) Pulmonary hypertension Code(s): I27.2 - OTHER SECONDARY PULMONARY HYPERTENSION * DO NOT USE * (29) Sacral decubitus ulcer, stage II Code(s): L89.152 - PRESSURE ULCER OF SACRAL REGION, STAGE 2 (30) Stage III pressure ulcer of sacral region Code(s): L89.153 - PRESSURE ULCER OF SACRAL REGION, STAGE 3 (31) UTI (urinary tract infection) Code(s): N39.0 - URINARY TRACT INFECTION, SITE NOT SPECIFIED (32) Weakness Code(s): R53.1 - WEAKNESS Assessment/Plan s/p fall r/o rhabdo ck mb neg borderline high tni paf on digoxin hypothyroidism, HTN, HLD, pressure ulcer, and osteoarthritis Plan echo ivf d/c digoxin cont ac and cardizem toprol for rate control
[2017-08-16] MEDS: FERROUS SO4 300 MG/5 ML ORAL SOLN UNIT DOSE CUPS PO SCH (17:27)
[2017-08-17] MEDS: MAG HYDROX/AL HYDROX/SIMETH 30 ML UNIT-DOSE CUP PO SCH ×2 (00:43→06:25)
[2017-08-17] MEDS: LEVOTHYROXINE NA 25 MCG TABLET (FP) PO SCH (06:35)
--- NOTE | 2017-08-17 06:40 | DS ---
Physical Examination Vital Signs: Vital Signs Temperature 97.8 F 08/17/17 05:00 Pulse Rate 64 08/17/17 05:00 Respiratory Rate 16 08/17/17 05:00 Blood Pressure 146/74 08/17/17 05:00 O2 Sat by Pulse Oximetry (%) 97 08/16/17 21:00 Findings/Remarks: in bed awake alert NAD axox3 VSS no c/o eats OK, EGD findings d/w pt advised GI f/u in 1-2 weeks to check pathology r/o cancer; f/u labs in 1 week [facility] and repeat EGD in 2 months; he understood - will also be on DC papers Constitutional: Yes: No Distress, Calm Eyes: Yes: Conjunctiva Clear HENT: Yes: Atraumatic Neck: Yes: Supple Cardiovascular: No: Regular Rate and Rhythm Respiratory: Yes: CTA Bilaterally Gastrointestinal: Yes: Soft. No: Tenderness Renal/: No: CVA Tenderness - Left, CVA Tenderness - Right, Hematuria Musculoskeletal: No: Joint Stiffness, Joint Swelling Extremities: No: Cold, Cool, Cyanosis Edema: No Integumentary: No: Rash, Venous Stasis Changes Neurological: Yes: WNL, Alert, Oriented ...Motor Strength: WNL Psychiatric: Yes: WNL, Alert, Oriented. No: Agitated, Suicidal Ideation Labs: CBC, BMP 08/15/17 07:45 08/15/17 07:45 Discharge Summary Reason For Visit: NSTEMI RHADOMYOLYSIS FALL DUE TO STUMBL Current Active Problems Aortic stenosis (Acute) Diarrhea (Acute) Diverticula of colon (Acute) Elevated CK (Acute) Fall due to stumbling (Acute) History of bleeding peptic ulcer (Acute) Hypothyroid (Acute) NSTEMI (non-ST elevated myocardial infarction) (Acute) Occult blood in stools (Acute) Rhabdomyolysis (Acute) Sacral decubitus ulcer (Acute) Procedures: Principal: admitted after a fall; rhabdomyolisis and Nonstemi; Other Procedures: admitted to telemetry, seen by cardiology;. developed anemia , h/o PUDs, had EGD c/w gastritis, PUD; Hospital Course: needs GI f/u repeat EGD in 2 months; po meds as advised improved with above; f/u GI, cardiology and PCP as advised Condition: Stable - Instructions Diet, Activity, Other Instructions: f/u GI dr Young in 1-2 weeks and repeat EGD per GI in 2-3 months check pathology reports from 08/16/17 EGD in 1 week f/u labs CBC CMP TSH in 1 week falls decubs DVT aspiration PFX po PPI as ordered, avoid Nsaids RTER if worse or recurrent c/o Referrals: Harry Lawrence MD [Primary Care Provider] - Martita Young MD [Staff Physician] - Saravanan Adame MD [Staff Physician] - Disposition: [facility] - Home Medications Comprehensive Discharge Medication List: Ambulatory Orders Acetaminophen [Tylenol] 650 mg PO Q4H PRN 05/13/16 Ascorbate Calcium [Vitamin C] 500 mg PO DAILY 05/13/16 Diltiazem HCl [Cardizem LA] 240 mg PO DAILY 05/13/16 Metoprolol Succinate [Toprol Xl] 75 mg PO DAILY 05/13/16 Dabigatran Etexilate Mesylate [Pradaxa -] 150 mg PO BID cap 06/29/16 Ferrous Sulfate [Feosol] 325 mg PO TID 09/05/16 Furosemide 20 mg PO BID 09/05/16 Gentamicin 0.1% Ointment [Garamycin 0.1% Ointment -] 1 applic TP BID 09/05/16 Aa/Hydrolyzed Collagen, Whey [Lps Neutral Flavor Liquid] 30 ml PO BID 08/11/17 Albuterol 2.5/Ipratropium 0.5 [Duoneb -] 1 neb IH QID PRN 08/11/17 Ranitidine [Zantac -] 150 mg PO BID 08/11/17 Vitamin B Comp W-C [Nephro-Kendal -] 1 tablet PO DAILY 08/11/17 Dabigatran Etexilate Mesylate [Pradaxa -] 150 mg PO BID cap 08/17/17 Levothyroxine [Synthroid -] 50 mcg PO DAILY #30 tablet 08/17/17 Mag Hydrox/Al Hydrox/Simeth [Mylanta Oral Suspension -] 30 ml PO Q6HPO cup Multivitamins [Multivit ([facility] Formulary)] 1 tab PO DAILY tab 08/17/17 Pantoprazole Sodium [Protonix -] 40 mg PO DAILY tablet.ec 08/17/17 Zinc Sulfate [Orazinc -] 220 mg PO DAILY capsule 08/17/17
[2017-08-17 08:00] LABS: BASO % 0.7 % (0-2.0); EOS % 1.1 % (0-4.5); MCH 24.3 pg (25.7-33.7); MCHC 32.8 g/dl (32.0-35.9); MEAN CELL VOLUME 74.2 fl (80-96); MEAN PLT VOLUME 7.4 fl (7.5-11.1); PLATELET COUNT 298 K/MM3 (134-434); RDW 20.8 % (11.9-15.9); WHITE BLOOD COUNT 6.1 K/mm3 (4.0-10.0)
[2017-08-17 08:14] LABS: ANION GAP 9 (8-16); CALCIUM 7.1 mg/dL (8.5-10.1); CO2 23 mmol/L (21-32); CREATININE 0.8 mg/dL (0.7-1.3); GLUCOSE,RANDOM 77 mg/dL (74-106); SGOT/AST 34 U/L (15-37); SGPT/ALT 22 U/L (12-78)
[2017-08-17 08:16] LABS: ALK PHOS 66 U/L (45-117); BILIRUBIN,TOTAL 0.4 mg/dL (0.2-1.0); TOT PROT 5.6 g/dl (6.4-8.2)
[2017-08-17] MEDS ORDERED: DABIGATRAN ETEXILATE MESYLATE 150 MG CAPSULE PO SCH (10:00)
[2017-08-17] MEDS ORDERED: PANTOPRAZOLE 40 MG TABLET (FP) PO SCH (10:00)
[2017-08-17] MEDS ORDERED: PT OWN MED DRAWER 7, Y5N ONE (10:22)
[2017-08-17] MEDS: METOPROLOL SUCCINATE 50 MG TAB.SR.24H (FP) PO SCH (10:24)
[2017-08-17] MEDS: FERROUS SO4 300 MG/5 ML ORAL SOLN UNIT DOSE CUPS PO SCH (10:24)
[2017-08-17] MEDS: MULTIVITAMINS (DAILY MVI) TABLET (FP) PO SCH (10:25)
[2017-08-17] MEDS: VITAMIN B COMP W-C 1 EA TABLET PO SCH (10:25)
[2017-08-17] MEDS: ASCORBIC ACID 500 MG TABLET (FP) PO SCH (10:25)
[2017-08-17] MEDS: ZINC SULFATE 220 MG CAPSULE (FP) PO SCH (10:26)
[2017-08-17] MEDS ORDERED: POTASSIUM CHLORIDE TABS 20 MEQ TABLET.ER (FP) PO ONE (10:40)
[2017-08-17 14:09] VITALS: BP 144/69; PULSE 68; TEMP 98
--- NOTE | 2017-08-17 15:45 | PATH ---
Surgical Pathology Report Patient Name: KEON DIAZ [facility]. Rec. #: [id number] /Age/Gender: 1930 (Age: 87) / M Account: [id number] Location: 4 PEDS/ADOL Taken: 08/16/2017 Received: 08/16/2017 Reported: 08/17/2017 Physicians: Shalom Zuniga D.O. Specimen(s) Received A: BX DISTAL ESOPHAGUS B: BX ESOPHAGEAL PLAQUE Clinical History Preoperative diagnosis: Anemia Postoperative diagnosis: Esophagitis, hiatal hernia, gastritis Final Diagnosis A. DISTAL ESOPHAGUS, BIOPSY: FIBRINOPURULENT MATERIAL CONSISTENT WITH ULCER BASE, AND SCANT BENIGN SQUAMOUS EPITHELIUM. FUNGAL STAIN (PAS) IS NEGATIVE. B. ESOPHAGEAL PLAQUE, BIOPSY: FOREIGN MATERIAL MORPHOLOGICALLY SUGGESTIVE OF MEDICATION RESIN, AND SCANT BENIGN SQUAMOUS EPITHELIUM. Electronically Signed Umair Ames M.D. Gross Description A. Received in formalin, labeled "biopsy distal esophagus" is a orantes, irregular portion of soft tissue measuring 0.4 cm. in greatest dimension. The specimen is submitted in toto in one cassette. B. Received in formalin labeled "biopsy esophageal plaque," are 2 irregular fragments of orantes-white material, possibly consistent with esophageal plaque. The specimens measure 0.5 and 0.7 cm in greatest dimension. The specimens are submitted in toto in one cassette. 08/16/201708/16/2017
== END 2017-08-17 13:17 | DRG 557 ==
LOC: JER 21:14 → JERBED 08-11 03:21 → J4S 08-11 12:30
PROVIDERS: ADMIT Internal Medicine; ATTEND Internal Medicine
PROC: 30233N1 Transfusion of Nonautologous Red Blood Cells into Peripheral Vein, Percutaneous Approach (ICD-10-PCS; 2017-08-12)
PROC: 0DD28ZX Extraction of Middle Esophagus, Via Natural or Artificial Opening Endoscopic, Diagnostic (ICD-10-PCS; 2017-08-16)
PROC: 0DD38ZX Extraction of Lower Esophagus, Via Natural or Artificial Opening Endoscopic, Diagnostic (ICD-10-PCS; principal; 2017-08-16 10:45)
DX: M62.82 Rhabdomyolysis (principal); I21.4 Non-ST elevation (NSTEMI) myocardial infarction; I13.0 Hypertensive heart and chronic kidney disease with heart failure and stage 1 through stage 4 chronic kidney disease, or unspecified chronic kidney disease; I50.32 Chronic diastolic (congestive) heart failure; I48.91 Unspecified atrial fibrillation; E03.9 Hypothyroidism, unspecified; E78.5 Hyperlipidemia, unspecified; J44.9 Chronic obstructive pulmonary disease, unspecified; M17.0 Bilateral primary osteoarthritis of knee; I08.0 Rheumatic disorders of both mitral and aortic valves; I27.20 Pulmonary hypertension, unspecified; R19.7 Diarrhea, unspecified; K22.8 Other specified diseases of esophagus; R19.5 Other fecal abnormalities; L89.152 Pressure ulcer of sacral region, stage 2; K44.9 Diaphragmatic hernia without obstruction or gangrene; K20.8 Other esophagitis; K57.30 Diverticulosis of large intestine without perforation or abscess without bleeding; D50.0 Iron deficiency anemia secondary to blood loss (chronic); W06.XXXA Fall from bed, initial encounter; Y93.89 Activity, other specified; Y92.092 Bedroom in other non-institutional residence as the place of occurrence of the external cause; R74.8 Abnormal levels of other serum enzymes; N18.9 Chronic kidney disease, unspecified; Z87.11 Personal history of peptic ulcer disease
CPT/HCPCS: 36415; 36430; 36511; 70450-TC; 72170-TC; 74020-TC; 80048; 80053; 81003; 81015; 82550; 82553; 82607; 82728; 83540; 83550; 83690; 83735; 84443; 84484; 85025; 85044; 85610; 86850; 86870; 86900; 86901; 86902; 86922; 87045; 87046; 87177; 87205; 87209; 87324; 87449; 88305-TC; 93005; 93010; 93306-TC; 99282-25; P9038; P9058